=== PATIENT | male | born 1960 | race Caucasian/White ===

== ENCOUNTER 2023-11-24 12:18 | Outpatient (OUT) | payer BC, SELFPAY ==
[2023-11-24 13:09] LABS: Basophils Percent Auto 0.5 % (0.2-2.0); Eosinophils Absolute Auto 0.1 10^3/uL (0.0-0.7); Eosinophils Percent Auto 1.1 % (0.9-7.0); Hemoglobin 11.2 g/dL (14.0-18.0); Immature Granulocytes Abs Auto 0.03 10^3/uL (0.00-0.03); Immature Granulocytes Pct Auto 0.5 % (0.0-0.5); Lymphocytes Absolute Auto 1.8 10^3/uL (1.2-3.8); Lymphocytes Percent Auto 29.4 % (20.5-60.0); Mean Corpuscular HGB Conc 30.3 g/dL (29.9-35.2); Mean Corpuscular Hemoglobin 26.4 pg (25.9-34.0); Mean Corpuscular Volume 87.3 fL (80.0-94.0); Mean Platelet Volume 9.2 fL (9.5-13.5); Monocytes Absolute Auto 0.6 10^3/uL (0.3-0.8); Monocytes Percent Auto 10.1 % (1.7-12.0); Neutrophils Absolute Auto 3.6 10^3/uL (1.4-6.5); Neutrophils Percent Auto 58.4 % (43.0-75.0); Platelet Count 400 10^3/uL (150-450); Red Blood Count 4.24 10^6/uL (4.70-6.10); Red Cell Distribution Width 14.3 % (11.0-15.0); White Blood Count 6.2 10^3/uL (4.0-11.0)
[2023-11-24 13:34] LABS: Alanine Aminotransferase 19 U/L (16-63); Albumin Globulin Ratio 0.7; Albumin Level 3.1 g/dL (3.4-5.0); Alkaline Phosphatase 161 U/L (46-116); Anion Gap 16.3; Aspartate Amino Transferase 11 U/L (15-37); BUN Creatinine Ratio 13.8; Bilirubin Total 0.5 mg/dL (0.2-1.0); Calcium 9.7 mg/dL (8.5-10.1); Carbon Dioxide 25.8 mmol/L (21.0-32.0); Chloride 100 mmol/L (98-107); Chol HDL Ratio 2.8; Cholesterol 134 mg/dL (<=200); Estimated GFR (African America >60 (>=60); Estimated GFR (Non-African Ame >60 (>=60); Free T3 2.01 pg/mL (2.18-3.98); Globulin 4.5 g/dL; Glucose 91 mg/dL (74-106); HDL Cholesterol 48 mg/dL (40-60); LDL Cholesterol Calculated 75.8 mg/dL; Potassium 4.1 mmol/L (3.5-5.1); Sodium 138 mmol/L (136-145); Total Protein 7.6 g/dL (6.4-8.2); Triglycerides 51 mg/dL (<=150); VLDL CHOLESTEROL 10.2 mg/dL
[2023-11-24 14:49] LABS: Prostate Specific Antigen Scrn 3.76 ng/mL (<=4.00)
[2023-11-24 15:01] LABS: Thyroid Stimulating Hormone 0.356 uIU/mL (0.358-3.740)
[2023-11-24 15:04] LABS: Estimated Average Glucose 126 mg/dL
== END 2023-11-24 12:19 | disposition home or self-care (01) ==
LOC: LAB 12:24
PROVIDERS: PCP Family Medicine; Visit Provider Family Medicine
DX: Z00.00 Encounter for general adult medical examination without abnormal findings (principal)
CPT/HCPCS: 36415; 80053; 80061; 83036; 84436; 84443; 84481; 85025; G0103

== ENCOUNTER 2023-12-03 19:26 | Outpatient (REF) | payer BC, SELFPAY ==
--- OUTSIDE RECORDS SUMMARY | 2023-12-03 19:31 | XMS_ITS | CCD ---
Author Name Unknown Address [address] [place] [address] Organization [facility] Care Team Providers [facility] Concierge Name Role Phone Austyn EATON Attending Unavailable Austyn EATON Attending Unavailable MARTYMaricruz BOND Attending Unavailable Maricruz FERGUSON Admitting Unavailable HOY ., DR HILL Admitting Unavailable HOY ., DR HILL Primary Care Unavailable HOY ., DR HILL Attending Unavailable HOY ., DR HILL Primary Care Unavailable HOY ., DR HILL Consulting Unavailable HOY ., DR HILL Attending Unavailable HOY ., DR HILL Admitting Unavailable HOY ., DR HILL Admitting Unavailable HOY ., DR HILL Primary Care Unavailable HOY ., DR HILL Consulting Unavailable HOY ., DR HILL Attending Unavailable Allergies Allergy Classification Reported Allergen(s) Allergy Type Date of Onset Reaction(s) Facility (2 sources) Cephalexin Drug Allergy 11-18-[address] [facility] Repository Problems Problem Classification Problem Date Documented Da te Episodic/Chronic Other screening for suspected conditions (not mental disorders or infectious disease) (2 sources) Encounter for screening for malignant neoplasm of prostate; Translations: [Elevated prostate specific antigen [PSA]] Onset: 02-20-2023 Episodic Results Test Name Value Interpretation Reference Range Facil ity PSA, FREE AND TOTAL RATIOon 02-19-2023 % Free PSA 22.3 % Normal [facility] Comment on above: Result Comment: The table below lists the probability of prostate cancer for men with non-suspicious KYLAH results and total PSA between 4 and 10 ng/mL, by patient age (Kelsey et al, ERIKA 1998, 279:1542). % Free PSA 50-64 yr 65-75 yr 0.00-10.00% 56% 55% 10.01-15.00% 24% 35% 15.01-20.00% 17% 23% 20.01-25.00% 10% 20% >25.00% 5% 9% Please note: Kelsey et al did not make specific recommendations regarding the use of percent free PSA for any other population of men. Performed By: #### P SAFREE #### [facility] [address] [place] [address] Dr. Rafael Barragan Prostate specific Ag [Mass/Vol] 3.5 ng/mL Normal 0.0-4.0 [facility] Comment on above: Result Comment: Bell ESPINO methodology. . According to the [employer], Serum PSA should decrease and remain at undetectable levels after radical prostatectomy. The AUA defines biochemical recurrence as an initial PSA value 0.2 ng/mL or greater followed by a subsequent confirmatory PSA value 0.2 ng/mL or greater. Values obtained with different assay methods or kits cannot be used interchangeably. Results cannot be interpreted as absolute evidence of the presence or absence of malignant disease. Performed By: #### P SAFREE #### [facility] [address] [place] [address] Dr. Rafael Barragan PSA, Free 0.78 ng/mL Normal N/A [facility] Comment on above: Result Comment: Bell ESPINO methodology. Performed By: #### P SAFREE #### [facility] [address] [place] [address] Dr. Rafael Barragan CBC AUTO DIFFon 02-17-2023 BASO # 0.0 103/ul Normal 0.0-0.1 [facility] Comment on above: Performed By: #### C BC #### [facility] [address] [place] [address] Dr. Rafael Barragan Basophils/100 WBC (Bld) 0.7 % Normal 0.2-2.0 [facility] Comment on above: Performed By: #### C BC #### [facility] [address] [place] [address] Dr. Rafael Barragan EO # 0.2 103/ul Normal 0.0-0.7 [facility] Comment on above: Performed By: #### C BC #### [facility] [address] [place] [address] Dr. Rafael Barragan Eosinophils/100 WBC (Bld) 2.6 % Normal 0.9-7.0 [facility] Comment on above: Performed By: #### C BC #### [facility] [address] [place] [address] Dr. Rafael Barragan Erythrocyte distribution width (RBC) [Ratio] 14.3 % Normal 11.0-15.0 [facility] Comment on above: Performed By: #### C BC #### [facility] [address] [place] [address] Dr. Rafael Barragan Hematocrit (Bld) [Volume fraction] 39.7 % Critically low 42.0-54.0 [facility] Comment on above: Performed By: #### C BC #### [facility] [address] [place] [address] Dr. Rafael Barragan Hemoglobin (Bld) [Mass/Vol] 12.8 g/dL Critically low 14.0-18.0 [facility] Comment on above: Performed By: #### C BC #### [facility] [address] [place] [address] Dr. Rafael Barragan IG # 0.02 10e3/ul Normal 0.00-0.03 [facility] Comment on above: Performed By: #### C BC #### [facility] [address] [place] [address] Dr. Rafael Barragan IG % 0.3 % Normal 0.0-0.[address] [facility] Comment on above: Performed By: #### C BC #### [facility] [address] [place] [address] Dr. Rafael Barragan LYMPH # 1.7 103/ul Normal 1.2-3.[address] [facility] Comment on above: Performed By: #### C BC #### [facility] [address] [place] [address] Dr. Rafael Barragan Lymphocytes/100 WBC (Bld) 27.6 % Normal 20.5-60.0 [facility] Comment on above: Performed By: #### C BC #### [facility] [address] [place] [address] Dr. Rafael Barragan MANUAL DIFF REQ NO Normal [facility] Comment on above: Performed By: #### C BC #### [facility] [address] [address] [address] Rafael Barragan MCH (RBC) [Entitic mass] 28.5 pg Normal 25.9-34.0 [facility] Comment on above: Performed By: #### C BC #### [facility] [address] [place] [address] Dr. Rafael Barragan MCHC (RBC) [Mass/Vol] 32.2 g/dL Normal 29.9-35.2 [facility] Comment on above: Performed By: #### C BC #### [facility] [address] [place] [address] Dr. Rafael Barragan MCV (RBC) [Entitic vol] 88.4 fL Normal 80.0-94.0 [facility] Comment on above: Performed By: #### C BC #### [facility] [address] [place] [address] Dr. Rafael Barragan MONO # 0.5 103/ul Normal 0.3-0.8 [facility] Comment on above: Performed By: #### C BC #### [facility] [address] [place] [address] Dr. Rafael Barragan Monocytes/100 WBC (Bld) 8.6 % Normal 1.7-12.0 [facility] Comment on above: Performed By: #### C BC #### [facility] [address] [place] [address] Dr. Rafael Barragan NEUT # 3.6 103/ul Normal 1.4-6.5 [facility] Comment on above: Performed By: #### C BC #### [facility] [address] [place] [address] Dr. Rafael Barragan Neutrophils/100 WBC (Bld) 60.2 % Normal 43.0-75.0 [facility] Comment on above: Performed By: #### C BC #### [facility] [address] [place] [address] Dr. Rafael Barragan Platelet mean volume (Bld) [Entitic vol] 9.3 fL Critically low 9.5-13.5 [facility] Comment on above: Performed By: #### C BC #### [facility] [address] [address] [address] Rafael Barragan PLT 351 103/ul Normal 150-450 [facility] Comment on above: Performed By: #### C BC #### [facility] [address] [address] [address] Rafael Barragan RBC 4.49 106/ul Critically low 4.70-6.10 [facility] Comment on above: Performed By: #### C BC #### [facility] [address] [address] [address] Rafael Barragan WBC 6.0 103/ul Normal 4.0-11.0 [facility] Comment on above: Performed By: #### C BC #### [facility] [address] [place] [address] Dr. Rafael Barragan FREE THYROXINE INDEX T7on FTI 2.10 Normal 1.30-4.50 [facility] Comment on above: Performed By: #### T SH, LIPID, T7, CMP #### [facility] [address] [place] [address] Dr. Rafael Barragan T3U 35.0 % Normal 33.0-40.0 [facility] Comment on above: Performed By: #### T SH, LIPID, T7, CMP #### [facility] [address] [place] [address] Dr. Rafael Barragan T4 [Mass/Vol] 6.00 ug/dL Normal 4.50-12.10 [facility] Comment on above: Performed By: #### T SH, LIPID, T7, CMP #### [facility] [address] [place] [address] Dr. Rafael Barragan GLYCOHEMOGLOBIN A1Con 2022 ADA RECOMMENDATION SEE BELOW Normal [facility] Comment on above: Result Comment: ADA RECOMMENDED LIMIT 4.0 - 6.0 ADA THERAPEUTIC TARGET < 7.0 ACTION SUGGESTED > 7.0 Performed By: #### A 1C #### [facility] [address] [address] [address] Rafael Barragan Glucose [Mass/Vol] 114 mg/dL Normal [facility] Comment on above: Performed By: #### A 1C #### [facility] [address] [address] [address] Rafael Barragan HbA1c (Bld) [Mass fraction] 5.6 % Normal 4.5-6.2 [facility] Comment on above: Performed By: #### A 1C #### [facility] [address] [place] [address] Dr. Rafael Barragan LIPID PROFILEon 02-17-2023 CHOL-HDL RATIO NORM SEE BELOW Normal [facility] Comment on above: Result Comment: 3.3 - 4.4 LOW RISK 4.4 - 7.1 AVERAGE RISK 7.1 - 11.0 MODERATE RISK >11.0 HIGH RISK Performed By: #### T SH, LIPID, T7, CMP #### [facility] [address] [place] [address] Dr. Rafael Barragan Cholesterol [Mass/Vol] 152 mg/dL Normal <=200 [facility] Comment on above: Performed By: #### T SH, LIPID, T7, CMP #### [facility] [address] [place] [address] Dr. Rafael Barragan Cholesterol in HDL [Mass/Vol] 65 mg/dL Critically high 40-60 [facility] Comment on above: Performed By: #### T SH, LIPID, T7, CMP #### [facility] [address] [place] [address] Dr. Rafael Barragan Cholesterol in LDL [Mass/Vol] 75.8 mg/dL Normal [facility] Comment on above: Performed By: #### T SH, LIPID, T7, CMP #### [facility] [address] [place] [address] Dr. Rafael Barragan Cholesterol.total/Cho lesterol in HDL [Mass ratio] 2.3 {ratio} Normal [facility] Comment on above: Performed By: #### T SH, LIPID, T7, CMP #### [facility] [address] [place] [address] Dr. Rafael Barragan HDL NORMAL > or = 60 mg/dl - LOW CARDIOVASCULAR RISK <40 mg/dl - HIGH CARDIOVASCULAR RISK Normal [facility] Comment on above: Performed By: #### T SH, LIPID, T7, CMP #### [facility] [address] [address] [address] Rafael Barragan LDL CALC NORMAL SEE BELOW Normal [facility] Comment on above: Result Comment: <100 mg/dl OPTIMAL 100 - 129 mg/dl NEAR OR ABOVE OPTIMAL 130 - 159 mg/dl BORDERLINE HIGH 160 - 189 mg/dl HIGH >190 mg/dl VERY HIGH Performed By: #### T SH, LIPID, T7, CMP #### [facility] [address] [address] [address] Rafael Barragan Triglyceride [Mass/Vol] 56 mg/dL Normal <=150 [facility] Comment on above: Performed By: #### T SH, LIPID, T7, CMP #### [facility] [address] [address] [address] Rafael Barragan VLDL CALC 11.2 mg/dL Normal [facility] Comment on above: Performed By: #### T SH, LIPID, T7, CMP #### [facility] [address] [address] [address] Rafael Barragan OCC BLD IMMUNO SCREENon 01-28 OCCULT BLOOD Negative Normal NEGATIVE [facility] Comment on above: Performed By: #### O BSCRN #### [facility] [address] [address] [address] Rafael Barragan PROF 14(COMP METB)on 023 Albumin [Mass/Vol] 3.6 g/dL Normal 3.4-5.0 [facility] Comment on above: Performed By: #### T SH, LIPID, T7, CMP #### [facility] [address] [address] [address] Rafael Barragan Albumin/Globulin [Mass ratio] 0.9 {ratio} Normal [facility] Comment on above: Performed By: #### T SH, LIPID, T7, CMP #### [facility] [address] [address] [address] Rafael Barragan ALP [Catalytic activity/Vol] 135 U/L Critically high 46-116 [facility] Comment on above: Performed By: #### T SH, LIPID, T7, CMP #### [facility] [address] [place] [address] Dr. Rafael Barragan ALT [Catalytic activity/Vol] 22 U/L Normal 16-63 [facility] Comment on above: Performed By: #### T SH, LIPID, T7, CMP #### [facility] [address] [address] [address] Rafael Barragan Anion gap [Moles/Vol] 11.4 mmol/L Normal [facility] Comment on above: Performed By: #### T SH, LIPID, T7, CMP #### [facility] [address] [place] [address] Dr. Rafael Barragan AST [Catalytic activity/Vol] 13 U/L Critically low 15-37 [facility] Comment on above: Performed By: #### T SH, LIPID, T7, CMP #### [facility] [address] [place] [address] Dr. Rafael Barragan Bilirubin [Mass/Vol] 0.4 mg/dL Normal 0.2-1.0 [facility] Comment on above: Performed By: #### T SH, LIPID, T7, CMP #### [facility] [address] [place] [address] Dr. Rafael Barragan Calcium [Mass/Vol] 9.7 mg/dL Normal 8.5-10.1 [facility] Comment on above: Performed By: #### T SH, LIPID, T7, CMP #### [facility] [address] [place] [address] Dr. Rafael Barragan Chloride [Moles/Vol] 101 mmol/L Normal 98-107 [facility] Comment on above: Performed By: #### T SH, LIPID, T7, CMP #### [facility] [address] [place] [address] Dr. Rafael Barragan CO2 [Moles/Vol] 30.9 mmol/L Normal 21.0-32.0 [facility] Comment on above: Performed By: #### T SH, LIPID, T7, CMP #### [facility] [address] [address] [address] Rafael Barragan Creatinine [Mass/Vol] 0.82 mg/dL Normal 0.70-1.[address] [facility] Comment on above: Performed By: #### T SH, LIPID, T7, CMP #### [facility] [address] [address] [address] Rafael Barragan EGFR-AF STATELESS >60 Normal >=60 [facility] Comment on above: Performed By: #### T SH, LIPID, T7, CMP #### [facility] [address] [address] [address] Rafael Barragan EGFR-NON AF STATELESS >60 Normal >=60 [facility] Comment on above: Performed By: #### T SH, LIPID, T7, CMP #### [facility] [address] [place] [address] Dr. Rafael Barragan Globulin (S) [Mass/Vol] 4.1 g/dL Normal [facility] Comment on above: Performed By: #### T SH, LIPID, T7, CMP #### [facility] [address] [address] [address] Rafael Barragan Glucose [Mass/Vol] 96 mg/dL Normal 74-106 [facility] Comment on above: Performed By: #### T SH, LIPID, T7, CMP #### [facility] [address] [address] [address] Rafael Barragan Potassium [Moles/Vol] 4.3 mmol/L Normal 3.5-5.1 [facility] Comment on above: Performed By: #### T SH, LIPID, T7, CMP #### [facility] [address] [address] [address] Rafael Barragan Protein [Mass/Vol] 7.7 g/dL Normal 6.4-8.2 [facility] Comment on above: Performed By: #### T SH, LIPID, T7, CMP #### [facility] [address] [address] [address] Rafael Barragan Sodium [Moles/Vol] 139 mmol/L Normal 136-145 [facility] Comment on above: Performed By: #### T SH, LIPID, T7, CMP #### [facility] [address] [address] [address] Rafael Barragan Urea nitrogen [Mass/Vol] 17.0 mg/dL Normal 7.0-18.0 [facility] Comment on above: Performed By: #### T SH, LIPID, T7, CMP #### [facility] [address] [address] [address] Rafael Barragan Urea nitrogen/Creatinine [Mass ratio] 20.7 mg/mg Normal [facility] Comment on above: Performed By: #### T SH, LIPID, T7, CMP #### [facility] [address] [address] [address] Rafael Barragan TSHon 02-17-2023 TSH 0.680 uIU/mL Normal 0.358-3.740 [facility] Comment on above: Performed By: #### T SH, LIPID, T7, CMP #### [facility] [address] [place] [address] Dr. Rafael Barragan [place] 01-27-2023 Consent [id number] 9#1.00CD:127 Normal [facility] Registrationon 01-27-2023 Registration [id number] 8#1.00CD:127 Normal [facility] In office Testingon 12-18-19 23 In office Testing [id number] #1.00CD:127 Normal [facility] [place] 10-09-2022 Consent [id number] 4#1.00CD:127 Normal [facility] Registrationon 10-09-2022 Registration [id number] 2#1.00CD:127 Normal [facility] [place] 09-29-2022 Consent [id number] #1.00CD:127 Normal [facility] Registrationon 09-29-2022 Registration [id number] #1.00CD:127 Normal [facility] Encounters Encounter Date Encounter Type Care Provider Facility Start: 02-21-2023 Encounter for genera l adult medical examination without abnormal findings DR LIZ LAU . [facility] Start: 02-19-2023 End: 02-19-[address] LIZ LAU . Facility[facility] Start: 02-19-2023 End: 02-19-2023 Encounter for general adult medical examination without abnormal findings DR LIZ LAU . Facility:[facility] Start: 02-17-2023 End: 02-18-[address] LIZ LAU . Facility:[facility] Start: 01-27-2023 End: 01-28-2023 ambulatory [facility] Start: 10-09-2022 End: 10-10-2022 ambulatory [facility] Start: 09-29-2022 End: 09-30-2022 ambulatory Maricruz FERGUSON [facility] Start: 09-22-[address] LIZ LAU . Facili ty:[facility] Procedures Date Procedure Procedure Detail Performing Clinician Start: 02-17-[address] AMINATA LAU . Comment on above: Performed By: #### P [facility] #### [facility] [address] [place] [address] Dr. Rafael Barragan Payers Date Payer Category Payer Self-pay 1960 Unknown [id number] 2.16.8 [id number] 1960 Unknown [id number] 2.16.8 [id number] 1960 Unknown [id number] 2.16.8 [id number] 1960 Unknown [id number] 2.16.84 [id number] 1960 Unknown [id number] 2.16.84 [id number] 1960 Unknown [id number] 2.16.84 [id number] 1959 Self-pay [id number] 1959 Unknown [id number] Summary Purpose Family History No Family History Records FoundNo Family History Records Found Advance Directives No Advanced Directives Records FoundNo Advanced Directives Records Found Additional Source Comments (unrecognized sect ion and content) No Status Records FoundNo Status Records Found INFORMATION SOURCE (unrecogn ized section and content) DATE CREATED AUTHOR 01/29/2023 [facility] DATE CREATED AUTHOR AUTHOR'S OMAR ATCRISTY 02/22/2023 [facility] FOR RECORDS PERTAINING TO PATIENTS WHO ARE OR HAVE BEEN ENROLLED IN A CHEMICAL DEPENDENCY/SUBSTANCEABUSE PROGRAM, SOME INFORMATION MAY BE OMITTED. This clinical summary was aggregated from multiple sources. Caution should be exercised in using it in the provision of clinical care. This summary normalizes information from multiple sources, and as a consequence, information in this document may materially change the coding, format and clinical context of patient data. In addition, data may be omitted in some cases. CLINICAL DECISIONS SHOULD BE BASED ON THE PRIMARY CLINICAL RECORDS. [employer] provides no warranty or guarantee of the accuracy or completeness of information in this document.
== END 2023-12-03 19:27 | disposition home or self-care (01) ==
LOC: LAB 19:26
PROVIDERS: PCP Family Medicine; Visit Provider Family Medicine
DX: Z00.00 Encounter for general adult medical examination without abnormal findings (principal)
CPT/HCPCS: G0328

== ENCOUNTER 2024-04-04 17:59 | Outpatient (OUT) | payer BC, SELFPAY ==
--- OUTSIDE RECORDS SUMMARY | 2024-04-04 18:09 | XMS_ITS | CCD ---
Author Organization [facility] Care Team Providers Care Senior Hydrogeologist Name Role Phone Austyn EATON Attending Unavailable Austyn EATON Attending Unavailable Maricruz FERGUSON Attending Unavailable Maricruz FERGUSON Admitting Unavailable HOY [...] (2 sources) Cephalexin Drug Allergy 11-18-2014 [facility] Repository Problems Problem Classification Problem Date Documented Da te Episodic/Chronic Other screening for suspected conditions (not mental disorders or infectious disease) (2 sources) Encounter for screening for malignant neoplasm of prostate; Translations: [Elevated prostate specific antigen [PSA]] Onset: 02-20-2023 Episodic Results Test Name Value Interpretation Reference Range Facil ity PSA, FREE AND TOTAL RATIOon 02-19-2023 % Free PSA 22.3 % Normal [facility] Comment on above: Result Comment: The table [...] men. Performed By: #### P SAFREE #### [facility] [address] [place] [address] Dr. Rafael Barragan Prostate specific Ag [Mass/Vol] 3.5 ng/mL Normal 0.0-4.0 [facility] Comment on above: Result Comment: [employer] ECLIA methodology. . According to the [employer], Serum PSA should decrease and [...] disease. Performed By: #### P SAFREE #### [facility] [address] [place] [address] Dr. Rafael Barragan PSA, Free 0.78 ng/mL Normal N/A [facility] Comment on above: Result Comment: [employer] ECLIA methodology. Performed By: #### P SAFREE #### [facility] [address] [place] [address] Dr. Rafael Barragan CBC AUTO DIFFon 02-17-2023 BASO # 0.0 103/ul Normal 0.0-0.1 [facility] Comment on above: Performed By: #### C BC #### [facility] [address] [place] [address] Dr. Rafael Barragan Basophils/100 WBC (Bld) 0.7 % Normal 0.2-2.0 [facility] Comment on above: Performed By: #### C BC #### [facility] [address] [place] [address] Dr. Rafael Barragan EO # 0.2 103/ul Normal 0.0-0.7 [facility] Comment on above: Performed By: #### C BC #### [facility] [address] [place] [address] Dr. Rafael Barragan Eosinophils/100 WBC (Bld) 2.6 % Normal 0.9-7.0 [facility] Comment on above: Performed By: #### C BC #### [facility] [address] [place] [address] Dr. Rafael Barragan Erythrocyte distribution width (RBC) [Ratio] 14.3 % Normal 11.0-15.0 [facility] Comment on above: Performed By: #### C BC #### [facility] [address] [place] [address] Dr. Rafael Barragan Hematocrit (Bld) [Volume fraction] 39.7 % Critically low 42.0-54.0 [facility] Comment on above: Performed By: #### C BC #### [facility] [address] [place] [address] Dr. Rafael Barragan Hemoglobin (Bld) [Mass/Vol] 12.8 g/dL Critically low 14.0-18.0 [facility] Comment on above: Performed By: #### C BC #### [facility] [address] [place] [address] Dr. Rafael Barragan IG # 0.02 10e3/ul Normal 0.00-0.03 [facility] Comment on above: Performed By: #### C BC #### [facility] [address] [place] [address] Dr. Rafael Barragan IG % 0.3 % Normal 0.0-0.5 [facility] Comment on above: Performed By: #### C BC #### [facility] [address] [place] [address] Dr. Rafael Barragan LYMPH # 1.7 103/ul Normal 1.2-3.8 [facility] Comment on above: Performed By: #### C BC #### [facility] [address] [place] [address] Dr. Rafael Barragan Lymphocytes/100 WBC (Bld) 27.6 % Normal 20.5-60.0 [facility] Comment on above: Performed By: #### C BC #### [facility] [address] [place] [address] Dr. Rafael Barragan MANUAL DIFF REQ NO Normal [facility] Comment on above: Performed By: #### C BC #### [facility] [address] [place] [address] Dr. Rafael Barragan MCH (RBC) [Entitic mass] 28.5 pg Normal 25.9-34.0 [facility] Comment on above: Performed By: #### C BC #### [facility] [address] [place] [address] Dr. Rafael Barragan MCHC (RBC) [Mass/Vol] 32.2 g/dL Normal 29.9-35.2 [facility] Comment on above: Performed By: #### C BC #### [facility] [address] [place] [address] Dr. Rafael Barragan MCV (RBC) [Entitic vol] 88.4 fL Normal 80.0-94.0 [facility] Comment on above: Performed By: #### C BC #### [facility] [address] [place] [address] Dr. Rafael Barragan MONO # 0.5 103/ul Normal 0.3-0.8 [facility] Comment on above: Performed By: #### C BC #### [facility] [address] [place] [address] Dr. Rafael Barragan Monocytes/100 WBC (Bld) 8.6 % Normal 1.7-12.0 [facility] Comment on above: Performed By: #### C BC #### [facility] [address] [place] [address] Dr. Rafael Barragan NEUT # 3.6 103/ul Normal 1.4-6.5 [facility] Comment on above: Performed By: #### C BC #### [facility] [address] [place] [address] Dr. Rafael Barragan Neutrophils/100 WBC (Bld) 60.2 % Normal 43.0-75.0 [facility] Comment on above: Performed By: #### C BC #### [facility] [address] [place] [address] Dr. Rafael Barragan Platelet mean volume (Bld) [Entitic vol] 9.3 fL Critically low 9.5-13.5 [facility] Comment on above: Performed By: #### C BC #### [facility] [address] [address] [address] Rafael Barragan PLT 351 103/ul Normal 150-450 [facility] Comment on above: Performed By: #### C BC #### [facility] [address] [address] [address] Rafael Barragan RBC 4.49 106/ul Critically low 4.70-6.10 [facility] Comment on above: Performed By: #### C BC #### [facility] [address] [address] [address] Rafael Barragan WBC 6.0 103/ul Normal 4.0-11.0 [facility] Comment on above: Performed By: #### C BC #### [facility] [address] [place] [address] Dr. Rafael Barragan FREE THYROXINE INDEX T7on FTI 2.10 Normal 1.30-4.50 [facility] Comment on above: Performed By: #### T SH, LIPID, T7, CMP #### [facility] [address] [address] [address] Rafael Barragan T3U 35.0 % Normal 33.0-40.0 [facility] Comment on above: Performed By: #### T SH, LIPID, T7, CMP #### [facility] [address] [address] [address] Rafael Barragan T4 [Mass/Vol] 6.00 ug/dL Normal 4.50-12.10 [facility] Comment on above: Performed By: #### T SH, LIPID, T7, CMP #### [facility] [address] [place] [address] Dr. Rafael Barragan GLYCOHEMOGLOBIN A1Con 2022 ADA RECOMMENDATION SEE BELOW Normal [facility] Comment on above: Result Comment: ADA RECOMMENDED LIMIT 4.0 - 6.0 ADA THERAPEUTIC TARGET < 7.0 ACTION SUGGESTED > 7.0 Performed By: #### A 1C #### [facility] [address] [address] [address] Rafael Barragan Glucose [Mass/Vol] 114 mg/dL Normal [facility] Comment on above: Performed By: #### A 1C #### [facility] [address] [address] [address] Rafael Barragan HbA1c (Bld) [Mass fraction] 5.6 % Normal 4.5-6.2 [facility] Comment on above: Performed By: #### A 1C #### [facility] [address] [address] [address] Rafael Barragan LIPID PROFILEon 02-17-2023 CHOL-HDL RATIO NORM SEE BELOW Normal [facility] Comment on above: Result Comment: 3.3 - 4.4 LOW RISK 4.4 - 7.1 AVERAGE RISK 7.1 - 11.0 MODERATE RISK >11.0 HIGH RISK Performed By: #### T SH, LIPID, T7, CMP #### [facility] [address] [address] [address] Rafael Barragan Cholesterol [Mass/Vol] 152 mg/dL Normal <=200 [facility] Comment on above: Performed By: #### T SH, LIPID, T7, CMP #### [facility] [address] [address] [address] Rafael Barragan Cholesterol in HDL [Mass/Vol] 65 mg/dL Critically high 40-60 [facility] Comment on above: Performed By: #### T SH, LIPID, T7, CMP #### [facility] [address] [address] [address] Rafael Barragan Cholesterol in LDL [Mass/Vol] 75.8 mg/dL Normal [facility] Comment on above: Performed By: #### T SH, LIPID, T7, CMP #### [facility] [address] [address] [address] Rafael Barragan Cholesterol.total/Cho lesterol in HDL [Mass ratio] 2.3 {ratio} Normal [facility] Comment on above: Performed By: #### T SH, LIPID, T7, CMP #### [facility] [address] [address] [address] Rafael Barragan HDL NORMAL > or = 60 mg/dl - LOW CARDIOVASCULAR RISK <40 mg/dl - HIGH CARDIOVASCULAR RISK Normal [facility] Comment on above: Performed By: #### T SH, LIPID, T7, CMP #### [facility] [address] [address] [address] Rafael Barragan LDL CALC NORMAL SEE BELOW Normal [facility] Comment on above: Result Comment: <100 mg/dl OPTIMAL 100 - 129 mg/dl NEAR OR ABOVE OPTIMAL 130 - 159 mg/dl BORDERLINE HIGH 160 - 189 mg/dl HIGH >190 mg/dl VERY HIGH Performed By: #### T SH, LIPID, T7, CMP #### [facility] [address] [address] [address] Rafael Barragan Triglyceride [Mass/Vol] 56 mg/dL Normal <=150 [facility] Comment on above: Performed By: #### T SH, LIPID, T7, CMP #### [facility] [address] [address] [address] Rafael Barragan VLDL CALC 11.2 mg/dL Normal [facility] Comment on above: Performed By: #### T SH, LIPID, T7, CMP #### [facility] [address] [address] [address] Rafael Barragan OCC BLD IMMUNO SCREENon 01-28 OCCULT BLOOD Negative Normal NEGATIVE [facility] Comment on above: Performed By: #### O BSCRN #### [facility] [address] [address] [address] Rafael Barragan PROF 14(COMP METB)on 023 Albumin [Mass/Vol] 3.6 g/dL Normal 3.4-5.0 [facility] Comment on above: Performed By: #### T SH, LIPID, T7, CMP #### [facility] [address] [address] [address] Rafael Barragan Albumin/Globulin [Mass ratio] 0.9 {ratio} Normal [facility] Comment on above: Performed By: #### T SH, LIPID, T7, CMP #### [facility] [address] [address] [address] Rafael Barragan ALP [Catalytic activity/Vol] 135 U/L Critically high 46-116 [facility] Comment on above: Performed By: #### T SH, LIPID, T7, CMP #### [facility] [address] [address] [address] Rafael Barragan ALT [Catalytic activity/Vol] 22 U/L Normal 16-63 [facility] Comment on above: Performed By: #### T SH, LIPID, T7, CMP #### [facility] [address] [place] [address] Dr. Rafael Barragan Anion gap [Moles/Vol] 11.4 mmol/L Normal [facility] Comment on above: Performed By: #### T SH, LIPID, T7, CMP #### [facility] [address] [place] [address] Dr. Rafael Barragan AST [Catalytic activity/Vol] 13 U/L Critically low 15-37 [facility] Comment on above: Performed By: #### T SH, LIPID, T7, CMP #### [facility] [address] [place] [address] Dr. Rafael Barragan Bilirubin [Mass/Vol] 0.4 mg/dL Normal 0.2-1.0 [facility] Comment on above: Performed By: #### T SH, LIPID, T7, CMP #### [facility] [address] [place] [address] Dr. Rafael Barragan Calcium [Mass/Vol] 9.7 mg/dL Normal 8.5-10.1 [facility] Comment on above: Performed By: #### T SH, LIPID, T7, CMP #### [facility] [address] [address] [address] Rafael Barragan Chloride [Moles/Vol] 101 mmol/L Normal 98-107 [facility] Comment on above: Performed By: #### T SH, LIPID, T7, CMP #### [facility] [address] [place] [address] Dr. Rafael Barragan CO2 [Moles/Vol] 30.9 mmol/L Normal 21.0-32.0 [facility] Comment on above: Performed By: #### T SH, LIPID, T7, CMP #### [facility] [address] [place] [address] Dr. Rafael Barragan Creatinine [Mass/Vol] 0.82 mg/dL Normal 0.70-1.30 [facility] Comment on above: Performed By: #### T SH, LIPID, T7, CMP #### [facility] [address] [address] [address] Rafael Barragan EGFR-AF [place] >60 Normal >=60 [facility] Comment on above: Performed By: #### T SH, LIPID, T7, CMP #### [facility] [address] [address] [address] Rafael Barragan EGFR-NON AF [place] >60 Normal >=60 [facility] Comment on above: Performed By: #### T SH, LIPID, T7, CMP #### [facility] [address] [place] [address] Dr. Rafael Barragan Globulin (S) [Mass/Vol] 4.1 g/dL Normal [facility] Comment on above: Performed By: #### T SH, LIPID, T7, CMP #### [facility] [address] [place] [address] Dr. Rafael Barragan Glucose [Mass/Vol] 96 mg/dL Normal 74-106 [facility] Comment on above: Performed By: #### T SH, LIPID, T7, CMP #### [facility] [address] [place] [address] Dr. Rafael Barragan Potassium [Moles/Vol] 4.3 mmol/L Normal 3.5-5.1 [facility] Comment on above: Performed By: #### T SH, LIPID, T7, CMP #### [facility] [address] [place] [address] Dr. Rafael Barragan Protein [Mass/Vol] 7.7 g/dL Normal 6.4-8.2 [facility] Comment on above: Performed By: #### T SH, LIPID, T7, CMP #### [facility] [address] [place] [address] Dr. Rafael Barragan Sodium [Moles/Vol] 139 mmol/L Normal 136-145 [facility] Comment on above: Performed By: #### T SH, LIPID, T7, CMP #### [facility] [address] [place], [place] [address] Dr. Rafael Barragan Urea nitrogen [Mass/Vol] 17.0 mg/dL Normal 7.0-18.0 [facility] Comment on above: Performed By: #### T SH, LIPID, T7, CMP #### [facility] [address] [place], [place] [address] Dr. Rafael Barragan Urea nitrogen/Creatinine [Mass ratio] 20.7 mg/mg Normal [facility] Comment on above: Performed By: #### T SH, LIPID, T7, CMP #### [facility] [address] [place], [place] [address] Dr. Rafael Barragan TSHon 02-17-2023 TSH 0.680 uIU/mL Normal 0.358-3.740 [facility] Comment on above: Performed By: #### T SH, LIPID, T7, CMP #### [facility] [address] [address] [address] Rafael Barragan [place] 01-27-2023 Consent [id number] 9#1.00CD:127 Normal [facility] Registrationon 01-27-2023 Registration [id number] 8#1.00CD:127 Normal [facility] In office Testingon 12-18-19 23 In office Testing [id number] #1.00CD:127 Normal [facility] [place] 10-09-2022 Consent [id number] 4#1.00CD:127 Normal [facility] Registrationon 10-09-2022 Registration [id number] 2#1.00CD:127 Normal [facility] [place] 09-29-2022 Consent [id number] #1.00CD:127 Normal [facility] Registrationon 09-29-2022 Registration [id number] #1.00CD:127 Normal [facility] Encounters Encounter Date Encounter Type Care Provider Facility Start: 02-21-2023 Encounter for genera l adult medical examination without abnormal findings DR LIZ LAU . [facility] Start: 02-19-2023 End: 02-19-[address] LIZ LAU . Facility[facility] Start: 02-19-2023 End: 02-19-2023 Encounter for general adult medical examination without abnormal findings DR LIZ LAU . Facility[facility] Start: 02-17-2023 End: 02-18-[address] LIZ LAU . Facility[facility] Start: 01-27-2023 End: 01-28-2023 ambulatory [facility] Start: 10-09-2022 End: 10-10-2022 ambulatory [facility] Start: 09-29-2022 End: 09-30-2022 ambulatory Maricruz Linnea [place] [facility] Start: 09-22-[address] LIZ LAU . Facili ty[facility] Procedures Date Procedure Procedure Detail Performing Clinician Start: 02-17-[address] AMINATA LAU . Comment on above: Performed By: #### P [facility] #### [facility] [address] [place] [address] Dr. Rafael Barragan Payers Date Payer Category Payer Self-pay 1960 Unknown [id number] [id number] [id number] 1960 Unknown [id number] 2.16.8 [id number] 1960 Unknown [id number] 2.16.8 [id number] 1960 Unknown [id number] 2.16.84 [id number] 1960 Unknown [id number] 2.16.84 [id number] 1960 Unknown [id number] 2.16.84 [id number] 1959 Self-pay [id number] 1959 Unknown [id number] Summary Purpose Family History No Family History Records FoundNo Family History Records Found Advance Directives No Advanced Directives Records FoundNo Advanced Directives Records Found Additional Source Comments (unrecognized sect ion and content) No Status Records FoundNo Status Records Found INFORMATION SOURCE (unrecogn ized section and content) DATE CREATED AUTHOR 01/29/2023 [facility] DATE CREATED AUTHOR AUTHOR'S OMAR ATCRISTY 02/22/2023 [facility] PERTAINING TO PATIENTS WHO ARE [...] BE BASED ON THE PRIMARY CLINICAL RECORDS. [facility]. provides no warranty or guarantee of the accuracy or completeness of information in this document.
--- NOTE | 2024-04-04 18:15 | XR_ITS ---
The [address] [address] Patient Name: DONNY DIEGO MRN: [id number] date: 1960 Sex: M Assigned Patient Location: [facility] Current Patient Location: Accession/Order Number: [id number] Exam Date: 04/04/2024 18:10 Report Date: 04/05/2024 07:50 At the request of: LIZ LAU Procedure: XR shoulder LT min 2V PROCEDURE: XR shoulder LT min 2V COMPARISON: None. HISTORY: Impingement of left shoulder, M25.812 FINDINGS: BONES:No acute fracture or dislocation. The acromioclavicular and glenohumeral joints are intact with mild osteoarthropathy. Moderate degenerative spondylosis of the spine SOFT TISSUES:Negative. No visible soft tissue swelling. EFFUSION:None visible. OTHER: Negative. XR/XR shoulder LT min 2V IMPRESSION: Mild degenerative changes with no significant subacromial spurring to suggest shoulder impingement Electronically authenticated by: ILNH DAILEY Date: 04/05/2024 07:50
== END 2024-04-04 18:00 | disposition home or self-care (01) ==
LOC: RAD 18:03
PROVIDERS: PCP Family Medicine; Visit Provider Family Medicine
DX: M25.812 Other specified joint disorders, left shoulder (principal)
CPT/HCPCS: 73030

== ENCOUNTER 2024-12-30 08:29 | Outpatient (OUT) | payer BC, SELFPAY ==
--- OUTSIDE RECORDS SUMMARY | 2024-12-30 08:32 | XMS_ITS | CCD ---
Author Organization [facility] Care Team Providers Care Publicity Expert Name Role Phone JUDI ., DR HILL Admitting Unavailable HOY ., [...] Unavailable HOY ., DR HILL Attending Unavailable MARTYMaricruz BOND Attending Unavailable Allergies Allergy Classification Reported Allergen(s) Allergy Type Date of Onset Reaction(s) Facility (2 sources) Cephalexin Drug Allergy 11-18-[address] [facility] Repository Problems Problem Classification Problem Date Documented Da te Episodic/Chronic Other screening for suspected conditions (not mental disorders or infectious disease) (2 sources) Encounter for screening for malignant neoplasm of prostate; Translations: [Elevated prostate specific antigen [PSA]] Onset: 02-20-2023 Episodic Results Test Name Value Interpretation Reference Range Facil ity PSA, FREE AND TOTAL RATIOon 02-19-2023 % Free PSA 22.3 % Normal [facility] Comment on above: Result Comment: The [...] men. Performed By: #### P SAFREE #### [facility] [address] [place] [address] Dr. Rafael Barragan Prostate specific Ag [Mass/Vol] 3.5 ng/mL Normal 0.0-4.0 [facility] Comment on above: Result Comment: Bell MARIEEIA methodology. . According to the [employer], Serum PSA should decrease and [...] disease. Performed By: #### P SAFREE #### [facility] [address] [place] [address] Dr. Rafael Barragan PSA, Free 0.78 ng/mL Normal N/A [facility] Comment on above: Result Comment: Bell cox ECLIA methodology. Performed By: #### P SAFREE #### [facility] [address] [place] [address] Dr. Rafael Barragan CBC AUTO DIFFon 02-17-2023 BASO # 0.0 103/ul Normal 0.0-0.1 [facility] Comment on above: Performed By: #### C BC #### [facility] [address] [place] [address] Dr. Rafael Barragan Basophils/100 WBC (Bld) 0.7 % Normal 0.2-2.0 [facility] Comment on above: Performed By: #### C BC #### [facility] [address] [place] [address] Dr. Rafael Barragan EO # 0.2 103/ul Normal 0.0-0.[address] [facility] Comment on above: Performed By: #### C BC #### [facility] [address] [place] [address] Dr. Rafael Barragan Eosinophils/100 WBC (Bld) 2.6 % Normal 0.9-7.0 [facility] Comment on above: Performed By: #### C BC #### [facility] [address] [place] [address] Dr. Rafael Barragan Erythrocyte distribution width (RBC) [Ratio] 14.3 % Normal 11.0-15.0 [facility] Comment on above: Performed By: #### C BC #### [facility] [address] [place] [address] Dr. Rafael Barragan Hematocrit (Bld) [Volume fraction] 39.7 % Critically low 42.0-54.0 [facility] Comment on above: Performed By: #### C BC #### [facility] [address] [place] [address] Dr. Rafael Barragan Hemoglobin (Bld) [Mass/Vol] 12.8 g/dL Critically low 14.0-18.0 [facility] Comment on above: Performed By: #### C BC #### [facility] [address] [place] [address] Dr. Rafael Barragan IG # 0.02 10e3/ul Normal 0.00-0.03 [facility] Comment on above: Performed By: #### C BC #### [facility] [address] [place] [address] Dr. Rafael Barragan IG % 0.3 % Normal 0.0-0.5 [facility] Comment on above: Performed By: #### C BC #### [facility] [address] [place] [address] Dr. Rafael Barragan LYMPH # 1.7 103/ul Normal 1.2-3.[address] [facility] Comment on above: Performed By: #### C BC #### [facility] [address] [place] [address] Dr. Rafael Barragan Lymphocytes/100 WBC (Bld) 27.6 % Normal 20.5-60.0 [facility] Comment on above: Performed By: #### C BC #### [facility] [address] [place] [address] Dr. Rafael Barragan MANUAL DIFF REQ NO Normal [facility] Comment on above: Performed By: #### C BC #### [facility] [address] [address] [address] Rafael Barragan MCH (RBC) [Entitic mass] 28.5 pg Normal 25.9-34.[address] [facility] Comment on above: Performed By: #### C BC #### [facility] [address] [place] [address] Dr. Rafael Barragan MCHC (RBC) [Mass/Vol] 32.2 g/dL Normal 29.9-35.[address] [facility] Comment on above: Performed By: #### C BC #### [facility] [address] [place] [address] Dr. Rafael Barragan MCV (RBC) [Entitic vol] 88.4 fL Normal 80.0-94.[address] [facility] Comment on above: Performed By: #### C BC #### [facility] [address] [place] [address] Dr. Rafael Barragan MONO # 0.5 103/ul Normal 0.3-0.[address] [facility] Comment on above: Performed By: #### C BC #### [facility] [address] [place] [address] Dr. Rafael Barragan Monocytes/100 WBC (Bld) 8.6 % Normal 1.7-12.[address] [facility] Comment on above: Performed By: #### C BC #### [facility] [address] [place] [address] Dr. Rafael Barragan NEUT # 3.6 103/ul Normal 1.4-6.[address] [facility] Comment on above: Performed By: #### C BC #### [facility] [address] [place] [address] Dr. Rafael Barragan Neutrophils/100 WBC (Bld) 60.2 % Normal 43.0-75.[address] [facility] Comment on above: Performed By: #### C BC #### [facility] [address] [place] [address] Dr. Rafael Barragan Platelet mean volume (Bld) [Entitic vol] 9.3 fL Critically low 9.5-13.[address] [facility] Comment on above: Performed By: #### C BC #### [facility] [address] [address] [address] Rafael Barragan PLT 351 103/ul Normal 150-[address] [facility] Comment on above: Performed By: #### C BC #### [facility] [address] [address] [address] Rafael Barragan RBC 4.49 106/ul Critically low 4.70-6.10 [facility] Comment on above: Performed By: #### C BC #### [facility] [address] [address] [address] Rafael Barragan WBC 6.0 103/ul Normal 4.0-11.0 [facility] Comment on above: Performed By: #### C BC #### [facility] [address] [address] [address] Rafael Barragan FREE THYROXINE INDEX T7on FTI 2.10 Normal 1.30-4.50 [facility] Comment on above: Performed By: #### T SH, LIPID, T7, CMP #### [facility] [address] [address] [address] Rafael Barragan T3U 35.0 % Normal 33.0-40.0 [facility] Comment on above: Performed By: #### T SH, LIPID, T7, CMP #### [facility] [address] [address] [address] Rafael Barragan T4 [Mass/Vol] 6.00 ug/dL Normal 4.50-12.10 [facility] Comment on above: Performed By: #### T SH, LIPID, T7, CMP #### [facility] [address] [address] [address] Rafael Barragan GLYCOHEMOGLOBIN A1Con 2022 ADA RECOMMENDATION SEE BELOW Normal [facility] Comment on above: Result Comment: ADA RECOMMENDED LIMIT 4.0 - 6.0 ADA THERAPEUTIC TARGET < 7.0 ACTION SUGGESTED > 7.0 Performed By: #### A 1C #### [facility] [address] [address] [address] Rafael Barragan Glucose [Mass/Vol] 114 mg/dL Normal [facility] Comment on above: Performed By: #### A 1C #### [facility] [address] [address] [address] Rafael Barragan HbA1c (Bld) [Mass fraction] 5.6 % Normal 4.5-6.2 [facility] Comment on above: Performed By: #### A 1C #### [facility] [address] [address] [address] Rafael Barragan LIPID PROFILEon 02-17-2023 CHOL-HDL RATIO NORM SEE BELOW Normal [facility] Comment on above: Result Comment: 3.3 - 4.4 LOW RISK 4.4 - 7.1 AVERAGE RISK 7.1 - 11.0 MODERATE RISK >11.0 HIGH RISK Performed By: #### T SH, LIPID, T7, CMP #### [facility] [address] [address] [address] Rafael Barragan Cholesterol [Mass/Vol] 152 mg/dL Normal <=200 [facility] Comment on above: Performed By: #### T SH, LIPID, T7, CMP #### [facility] [address] [address] [address] Rafael Barragan Cholesterol in HDL [Mass/Vol] 65 mg/dL Critically high 40-60 [facility] Comment on above: Performed By: #### T SH, LIPID, T7, CMP #### [facility] [address] [address] [address] Rafael Barragan Cholesterol in LDL [Mass/Vol] 75.8 mg/dL Normal [facility] Comment on above: Performed By: #### T SH, LIPID, T7, CMP #### [facility] [address] [address] [address] Rafael Barragan Cholesterol.total/Cho lesterol in HDL [Mass ratio] 2.3 {ratio} Normal [facility] Comment on above: Performed By: #### T SH, LIPID, T7, CMP #### [facility] [address] [address] [address] Rafael Barragan HDL NORMAL > or = 60 mg/dl - LOW CARDIOVASCULAR RISK <40 mg/dl - HIGH CARDIOVASCULAR RISK Normal [facility] Comment on above: Performed By: #### T SH, LIPID, T7, CMP #### [facility] [address] [address] [address] Rfaael Barragan LDL CALC NORMAL SEE BELOW Normal [facility] Comment on above: Result Comment: <100 mg/dl OPTIMAL 100 - 129 mg/dl NEAR OR ABOVE OPTIMAL 130 - 159 mg/dl BORDERLINE HIGH 160 - 189 mg/dl HIGH >190 mg/dl VERY HIGH Performed By: #### T SH, LIPID, T7, CMP #### [facility] [address] [address] [address] Rafael Barragan Triglyceride [Mass/Vol] 56 mg/dL Normal <=150 [facility] Comment on above: Performed By: #### T SH, LIPID, T7, CMP #### [facility] [address] [address] [address] Rafael Barragan VLDL CALC 11.2 mg/dL Normal [facility] Comment on above: Performed By: #### T SH, LIPID, T7, CMP #### [facility] [address] [address] [address] Rafael Barragan OCC BLD IMMUNO SCREENon 01-28 OCCULT BLOOD Negative Normal NEGATIVE [facility] Comment on above: Performed By: #### O BSCRN #### [facility] [address] [place] [address] Dr. Raafel Barragan PROF 14(COMP METB)on 023 Albumin [Mass/Vol] 3.6 g/dL Normal 3.4-5.0 [facility] Comment on above: Performed By: #### T SH, LIPID, T7, CMP #### [facility] [address] [place] [address] Dr. Rafael Barragan Albumin/Globulin [Mass ratio] 0.9 {ratio} Normal [facility] Comment on above: Performed By: #### T SH, LIPID, T7, CMP #### [facility] [address] [address] [address] Rafael Barragan ALP [Catalytic activity/Vol] 135 U/L Critically high 46-116 [facility] Comment on above: Performed By: #### T SH, LIPID, T7, CMP #### [facility] [address] [address] [address] Rafael Barragan ALT [Catalytic activity/Vol] 22 U/L Normal 16-63 [facility] Comment on above: Performed By: #### T SH, LIPID, T7, CMP #### [facility] [address] [address] [address] Rafael Barragan Anion gap [Moles/Vol] 11.4 mmol/L Normal [facility] Comment on above: Performed By: #### T SH, LIPID, T7, CMP #### [facility] [address] [place] [address] Dr. Rafael Barragan AST [Catalytic activity/Vol] 13 U/L Critically low 15-37 [facility] Comment on above: Performed By: #### T SH, LIPID, T7, CMP #### [facility] [address] [place] [address] Dr. Rafael Barragan Bilirubin [Mass/Vol] 0.4 mg/dL Normal 0.2-1.0 [facility] Comment on above: Performed By: #### T SH, LIPID, T7, CMP #### [facility] [address] [address] [address] Rafael Barragan Calcium [Mass/Vol] 9.7 mg/dL Normal 8.5-10.1 [facility] Comment on above: Performed By: #### T SH, LIPID, T7, CMP #### [facility] [address] [address] [address] Rafael Barragan Chloride [Moles/Vol] 101 mmol/L Normal 98-107 [facility] Comment on above: Performed By: #### T SH, LIPID, T7, CMP #### [facility] [address] [place] [address] Dr. Rafael Barragan CO2 [Moles/Vol] 30.9 mmol/L Normal 21.0-32.0 [facility] Comment on above: Performed By: #### T SH, LIPID, T7, CMP #### [facility] [address] [place] [address] Dr. Rafael Barragan Creatinine [Mass/Vol] 0.82 mg/dL Normal 0.70-1.[address] [facility] Comment on above: Performed By: #### T SH, LIPID, T7, CMP #### [facility] [address] [address] [address] Rafael Barragan EGFR-AF BHUTANESE >60 Normal >=60 [facility] Comment on above: Performed By: #### T SH, LIPID, T7, CMP #### [facility] [address] [address] [address] Rafael Barragan EGFR-NON AF BHUTANESE >60 Normal >=[address] [facility] Comment on above: Performed By: #### T SH, LIPID, T7, CMP #### [facility] [address] [place] [address] Dr. Rafael Barragan Globulin (S) [Mass/Vol] 4.1 g/dL Normal [facility] Comment on above: Performed By: #### T SH, LIPID, T7, CMP #### [facility] [address] [place] [address] Dr. Rafael Barragan Glucose [Mass/Vol] 96 mg/dL Normal 74-106 [facility] Comment on above: Performed By: #### T SH, LIPID, T7, CMP #### [facility] [address] [place] [address] Dr. Rafael Barragan Potassium [Moles/Vol] 4.3 mmol/L Normal 3.5-5.[address] [facility] Comment on above: Performed By: #### T SH, LIPID, T7, CMP #### [facility] [address] [place] [address] Dr. Rafael Barragan Protein [Mass/Vol] 7.7 g/dL Normal 6.4-8.2 [facility] Comment on above: Performed By: #### T SH, LIPID, T7, CMP #### [facility] [address] [place] [address] Dr. Rafael Barragan Sodium [Moles/Vol] 139 mmol/L Normal 136-145 [facility] Comment on above: Performed By: #### T SH, LIPID, T7, CMP #### [facility] [address] [place], [place] [address] Dr. Rafael Barragan Urea nitrogen [Mass/Vol] 17.0 mg/dL Normal 7.0-18.0 [facility] Comment on above: Performed By: #### T SH, LIPID, T7, CMP #### [facility] [address] [place], [place] [address] Dr. Rafael Barragan Urea nitrogen/Creatinine [Mass ratio] 20.7 mg/mg Normal [facility] Comment on above: Performed By: #### T SH, LIPID, T7, CMP #### [facility] [address] [place], [place] [address] Dr. Rafael Barragan TSHon 02-17-2023 TSH 0.680 uIU/mL Normal 0.358-3.740 [facility] Comment on above: Performed By: #### T SH, LIPID, T7, CMP #### [facility] [address] [place], [place] [address] Dr. Rafael Barragan Encounters Encounter Date Encounter Type Care Provider Facility Start: 09-26-2024 End: 09-26-2024 ambulatory Maricruz FERGUSON Facility:[facility] Start: 02-21-2023 Encounter for [facility] adult medical examination without abnormal findings DR LIZ LAU . [facility] Start: 02-19-2023 End: 02-19-[address] LIZ LAU . Facility: Start: 02-19-2023 End: 02-19-2023 Encounter for general adult medical examination without abnormal findings DR LIZ LAU . Facility:[facility] Start: 02-17-2023 End: 02-18-[address] LIZ LAU . Facility:[facility] Start: 09-22-[address] LIZ LAU . Facili ty:[facility] Procedures Date Procedure Procedure Detail Performing Clinician Start: 02-17-[address] AMINATA LAU . Comment on above: Performed By: #### P SASC #### [facility] [address] [place], [place] [address] Dr. Rafael Barragan Payers Date Payer Category Payer Self-pay 1960 Unknown [id number] [id number] [id number] 1960 Unknown [id number] [id number] [id number] 1960 Unknown [id number] [id number] [id number] 1960 Unknown [id number] 1959 Self-pay [id number] 1959 Unknown [id number] Summary Purpose Family History No Family History Records FoundNo Family History Records Found Advance Directives No Advanced Directives Records FoundNo Advanced Directives Records Found Additional Source Comments (unrecognized sect ion and content) No Status Records FoundNo Status Records Found INFORMATION SOURCE (unrecogn ized section and content) DATE CREATED AUTHOR 02/22/2023 [facility] DATE CREATED AUTHOR AUTHOR'S ORGANIZ ATION 09/28/2024 [facility] FOR RECORDS PERTAINING TO PATIENTS WHO ARE [...] BE BASED ON THE PRIMARY CLINICAL RECORDS. [employer] provides no warranty or guarantee of the accuracy or completeness of information in this document.
[2024-12-30 08:45] LABS: Basophils Percent Auto 0.3 % (0.2-2.0); Eosinophils Absolute Auto 0.2 10^3/uL (0.0-0.7); Eosinophils Percent Auto 2.3 % (0.9-7.0); Hematocrit 36.8 % (42.0-54.0); Hemoglobin 11.6 g/dL (14.0-18.0); Immature Granulocytes Abs Auto 0.05 10^3/uL (0.00-0.03); Immature Granulocytes Pct Auto 0.6 % (0.0-0.5); Lymphocytes Absolute Auto 1.5 10^3/uL (1.2-3.8); Mean Corpuscular HGB Conc 31.5 g/dL (29.9-35.2); Mean Corpuscular Hemoglobin 26.9 pg (25.9-34.0); Mean Corpuscular Volume 85.2 fL (80.0-94.0); Mean Platelet Volume 8.8 fL (9.5-13.5); Monocytes Absolute Auto 0.8 10^3/uL (0.3-0.8); Monocytes Percent Auto 8.6 % (1.7-12.0); Neutrophils Absolute Auto 6.6 10^3/uL (1.4-6.5); Neutrophils Percent Auto 72.2 % (43.0-75.0); Platelet Count 308 10^3/uL (150-450); Red Blood Count 4.32 10^6/uL (4.70-6.10); Red Cell Distribution Width 15.4 % (11.0-15.0); White Blood Count 9.1 10^3/uL (4.0-11.0)
[2024-12-30 08:58] LABS: Estimated Average Glucose 131 mg/dL; Glycohemoglobin A1C 6.2 % (4.5-6.2)
[2024-12-30 09:38] LABS: Prostate Specific Antigen Scrn 5.39 ng/mL (<=4.00)
[2024-12-30 09:49] LABS: Alanine Aminotransferase 23 U/L (16-63); Albumin Globulin Ratio 0.7; Albumin Level 2.9 g/dL (3.4-5.0); Alkaline Phosphatase 124 U/L (46-116); Anion Gap 11.2; Aspartate Amino Transferase 14 U/L (15-37); BUN Creatinine Ratio 16.5; Bilirubin Total 0.5 mg/dL (0.2-1.0); Calcium 9.1 mg/dL (8.5-10.1); Carbon Dioxide 31.6 mmol/L (21.0-32.0); Chloride 98 mmol/L (98-107); Cholesterol 121 mg/dL (<=200); Estimated GFR (African America >60 (>=60 mL/min/1.73m^2); Estimated GFR (Non-African Ame >60 (>=60 mL/min/1.73m^2); Free T3 2.17 pg/mL (2.18-3.98); Globulin 3.9 g/dL; Glucose 100 mg/dL (74-106); HDL Cholesterol 61 mg/dL (40-60); Potassium 3.8 mmol/L (3.5-5.1); Sodium 137 mmol/L (136-145); Thyroid Stimulating Hormone 0.072 uIU/mL (0.358-3.740); Total Protein 6.8 g/dL (6.4-8.2); Triglycerides 63 mg/dL (<=150); Uric Acid 5.6 mg/dL (3.5-7.2); VLDL CHOLESTEROL 12.6 mg/dL
[2025-01-02 04:07] LABS: PSA, Free 1.07 ng/mL; Prostate Specific Ag 4.9 ng/mL (0.0-4.0)
== END 2024-12-30 08:30 | disposition home or self-care (01) ==
LOC: LAB 08:30
PROVIDERS: PCP Family Medicine; Visit Provider Family Medicine
DX: Z00.00 Encounter for general adult medical examination without abnormal findings (principal); R97.20 Elevated prostate specific antigen [PSA]
CPT/HCPCS: 36415; 80053; 80061; 83036; 84153; 84154; 84436; 84443; 84481; 84550; 85025; G0103

== ENCOUNTER 2025-04-07 08:21 | Outpatient (OUT) | payer BC, SELFPAY ==
--- OUTSIDE RECORDS SUMMARY | 2025-04-07 08:25 | XMS_ITS | CCD ---
Author Organization [facility] Care Team Providers Care Flight Engineer Inspector Name Role Phone JUDI ., DR HILL [...] Unavailable HOY ., DR HILL Attending Unavailable SvenyLiz Primary Care Physician [phone] Richard TURNER R Attending Unavailable NILL, Richard R Admitting Unavailable NILL, Richard Montes Referring Unavailable MARTYMaricruz Attending Unavailable SvenyLiz Referring Unavailable NILL, Richard R Attending Unavailable NILL, Richard R Admitting Unavailable NILL, Richard R Referring Unavailable NILL, Richard R Attending Unavailable Allergies Allergy Classification Reported Allergen(s) Allergy Type Date of Onset Reaction(s) Facility (3 sources) Cephalexin; Translations: [Keflex] Drug Allergy 4 [facility] Repository (2 sources) Cephalexin; Translations: [cephalexin] Drug Allergy Eruption of skin (disorder) [facility] [place] Medications Current Medications Medication Drug Class(es) Dates Sig (Normalized) Sig (Original) diclofenac sodium 75 mg delayed release oral tablet (2 sources) Nonsteroidal Anti-inflammatory Drug Start: 01-05-2025 take 1 tablet by mouth once daily diclofenac sodium 75 mg Oral EC Tab 75 mg = 1 tab(s), Oral, Daily, Refills(s) 0, Inflammation Start Date: 01/05/25 Status: Ordered Repeat number: 1 levothyroxine sodium 0.112 mg oral tablet (2 sources) l-Thyroxine Start: 02-06-2025 take 1 tablet by mouth once daily levothyroxine 112 mcg (0.112 mg) Tab 112 mcg = 1 tab(s), Oral, Daily, Refills(s) 0, Thyroid Start Date: 02/06/25 Status: Ordered Repeat number: 1 liothyronine sodium 0.025 mg oral tablet (2 sources) l-Triiodothyronine Start: 01-05-2025 take 1 tablet by mouth once daily Cytomel 25 mcg Tab 25 mcg = 1 tab(s), Oral, Daily, Refills(s) 0, Thyroid Start Date: 01/05/25 Status: Ordered Repeat number: 1 Problems Problem Classification Problem Date Documented Da te Episodic/Chronic Anxiety disorders (2 sources) Anxiety 01-05-2025 Chronic Deficiency and other anemia (3 sources) Anemia; Translations: [Anemia, unspecified] Onset: 5 Episodic Other gastrointestinal disorders (2 sources) Gastrointestinal tract problem 03-02-2025 Episodic Other male genital disorders (2 sources) H/O: male genital disorder 01-05-2025 Episodic Other nutritional; endocrine; and metabolic disorders (2 sources) Overweight 01-05-2025 Episodic Other nutritional; endocrine; and metabolic disorders (2 sources) Overweight in adulthood with body mass index of 25 or more but less than 30 02-06-2025 Episodic Other screening for suspected conditions (not mental disorders or infectious disease) (2 sources) Encounter for screening for malignant neoplasm of prostate; Translations: [Elevated prostate specific antigen [PSA]] Onset: 3 Episodic Other upper respiratory disease (2 sources) Chronic rhinitis 01-05-2025 Chronic Thyroid disorders (2 sources) Hypothyroidism 01-05-2025 Chronic Results Test Name Value Interpretation Reference Range Facility XR Upper GI Single Contrasto n 03-08-2025 XR Upper GI Single Contrast Exam Date/Time: 03/08/2025 10:33 EDT Reason for Exam: R19.8;Other (please specify) Report IMPRESSION: NEGATIVE UPPER GI. EXAM: XR Upper GI Single Contrast DATE: 03/08/2025 9:58 AM CLINICAL HISTORY: R19.8. COMPARISON: None available. TECHNIQUE: A double contrast upper GI was performed. FINDINGS: The esophagus is normal in caliber. The stomach, antrum, pylorus and duodenum are normal in morphology, position and caliber. There is no mucosal irregularity, mass, discrete ulcer, or visualized gastroesophageal reflux. Ka,r in mGy = 13.4 DAP = 664.61 (\XB5\Gy*m\XB2\) Ordering Provider: Richard TURNER FINAL REPORT Dictated: 03/08/2025 4:53 pm Abdirizak Delgado MD Signed (Electronic Signature): 03/08/2025 4:53 pm Signed by: Abdirizak Delgado MD Transcribed by: CORIN Technologist: ANMOL Gordon [facility] Main OR Intraoperative Recor don 03-05-2025 Main OR Intraoperative Record Main OR Intraoperative Record IntraOp Document Type FT Summary Primary Physician: Richard TURNER MD Finalized Date/Time: 03/05/25 14:52:17 Pt. Name: DONNY DIEGO Kylie KumarB./Sex: 1960 Male Med Rec #: [id number] Physician: Richard TURNER MD Financial #: [id number] Pt. Type: O Room/Bed: / Admit/Disch: 03/02/25 06:49:30 - 03/03/25 23:59:59 Institution: Case Times FT Entry 1 Patient Times In Room 03/02/25 07:52:00 Out Room 03/02/25 08:22:00 Procedure Times Start 03/02/25 07:55:00 Stop 03/02/25 08:21:00 Anesthesia Times Start 03/02/25 07:52:00 Stop 03/02/25 08:22:00 Time at [facility] 03/02/25 08:13:00 Last Modified By: Brisa CHOE, Katelynn Rowland 03/02/25 08:22:36 General Comments: 0804 EGD completed. /MD,RN 0807 Colonoscopy started. /MD,RN Case Attendance FT Entry 1 Entry 2 Entry 3 Case Attendee Isma Snider CRNA, MD, Richard Ledezma RN, Katelynn Rowland Role Performed VICKI Surgeon - Primary Ruffling Machine Operator - Primary Time In 03/02/25 07:52:00 03/02/25 07:52:00 03/02/25 07:52:00 Time Out 03/02/25 08:22:00 03/02/25 08:22:00 03/02/25 08:22:00 Procedure EGD AND COLONOSCOPY(.) EGD AND COLONOSCOPY(.) EGD AND COLONOSCOPY(.) Comments Dr. Arango supervising case Last Modified By: Desirae Cage CST, RN, Katelynn Ledezma RN, Katelynn 03/05/25 14:48:05 F 03/02/25 08:22:37 F 03/02/25 08:22:37 Entry 4 Case Attendee Cherie Munoz Role Performed Scrub - Primary Time In 03/02/25 07:52:00 Time Out 03/02/25 08:22:00 Procedure EGD AND COLONOSCOPY(.) Comments Last Modified By: Katelynn Ledezma RN 03/02/25 08:22:37 Perioperative Protocols FT Pre-Care Text: Implements protective measures prior to operative or invasive procedure, confirms identity before the operative or invasive procedure, verifies operative procedure, surgical site, and laterality Entry 1 Procedure(s) EGD AND COLONOSCOPY(.) Patient Identity Birthday, ID Band Verified (select at Check, Patient least 2): Participation Consents / H and P Anesthesia Consent, Operative Site N/A Verified H&P, Surgery/Procedure Marking Verified Consent Surgical Site No Laterality Verified n/a Verified Procedure Verified Yes Correct Patient Yes Position Verified Availability Equipment, Medication Prep Dry n/a Verified (If Applicable) PreOp Antibiotic No Time Out Isma Snider CRNA, Given Participants Richard TURNER MD, Dendinger RN, Tammy Sanchez Micala E Time Out Complete 03/02/25 07:53:00 Outcomes Met? Yes Last Modified By: Katelynn Ledezma RN 03/02/25 07:56:17 Post-Care Text: The patient is free from signs and symptoms of injury caused by extraneous objects Allergy Information FT Pre-Care Text: Verifies allergies Entry 1 Allergies Reviewed? Yes Allergies Reviewed Self/Patient With Outcomes Met? Yes Last Modified By: Katelynn Ledezma RN 03/02/25 07:56:32 Post-Care Text: The patient received appropriate medication(s) safely administered during the perioperative period Surgical Procedures FT Entry 1 Procedure Description Procedure EGD AND COLONOSCOPY Modifiers . Surgeon Description EGD. Colonoscopy Primary Procedure Yes Primary Surgeon Richard TURNER MD Start 03/02/25 07:55:00 Stop 03/02/25 08:21:00 Anesthesia Type General Surgical Service General Wound Class 2 - Clean-Contaminated Last Modified By: Katelynn Ledezma RN 03/02/25 08:22:10 General Case Data FT Pre-Care Text: Classifies surgical wound, implements aseptic technique, initiates traffic control Entry 1 Case Information OR ENDO 2 FT Case Level Level 2 Wound Class 2 - Clean-Contaminated Specialty General ASA Class 3 Preop Diagnosis Anemia Postop Same As Preop No Postop Diagnosis EGD- tortuous stomach. Outcomes Met? Yes Colonoscopy- normal. Last Modified By: Katelynn Ledezma RN 03/02/25 08:22:17 Post-Care Text: The patient is free from signs and symptoms of infection Skin Assessment (Pre Procedure) FT Pre-Care Text: Implements protective measures to prevent skin/ tissue injury due to thermal or mechanical sources Evaluates for signs and symptoms of physical injury to skin and tissue Entry 1 Skin Integrity Intact, Canalou, Warm, & Skin Abnormality No Dry Outcomes Met? Yes Last Modified By: Katelynn Ledezma RN 03/02/25 07:57:00 Post-Care Text: The patient is free from signs and symptoms of injury caused by extraneous objects Patient Positioning FT Pre-Care Text: Identifies physical alterations that require additional precautions for procedure-specific positioning, verifies presence of prosthetics or corrective devices, positions the patient, evaluates the patient for signs and symptoms of injury as a result of positioning Entry 1 Procedure EGD AND COLONOSCOPY(.) Body Position Lateral, right side up Feet Uncrossed? Yes Left Arm Position Resting at Side Right Arm Position Resting at Side Left Leg Position (more content not included)... Normal [facility] Reminderson 03-05-2025 Reminders Reminders From: Sherita Ronquillo LPN To: GSN - Clinical; Sent: 03/05/2025 11:06:07 EDT Show up: 01/30/2035 07:00:00 EST Subject: colonoscopy recall Due Date/Time: 03/02/2035 07:00:00 EDT Reminder/Recall Patient due for screening colonoscopy 03/02/2035. Normal [facility] Discharge Instructionson Discharge Instructions Discharge Instruc tions DONNY DIEGO :1960 Visit Date:03/02/2025 Inpatient Discharge Instructions Your Care Team Admitting Physician - Richard TURNER MD Referring Physician - REBECCA PERKINS, Richard Montes Reason for Your Visit ANEMIA Your Diagnosis Anemia This Is Your Medications List diclofenac (diclofenac sodium 75 mg Oral EC Tab) levothyroxine (levothyroxine 112 mcg (0.112 mg) Tab) liothyronine (Cytomel 25 mcg Tab) Procedure History Colonoscopy (03/02/2025), Esophagogastroduodenoscopy (03/02/2025), Laryngoscopy, flexible; diagnostic (08/01/2021), Bx with primary closure left uppwer lip mucosa. (09/24/2016), Nasal septoplasty, Tonsillectomy and adenoidectomy. What to do next Instructions From Your Doctor Event Name Event Result Discharge Activity Resume normal activities in 24 hours, Arrange for a responsible adult supervision for 24 hours Discharge Restrictions No driving for 24 hrs, Do not operate machinery or tools, Do not make important decisions for 24 hours, Do not drink alcoholic beverages for 24 hours Discharge Diet(s) Regular Call Your Doctor For Persistent or heavy bleeding, Temperature above 101.5 degrees, Severe pain at the operative site, Persistent vomiting Discharge Instructions Discharge Instructions New Follow Up Appointments after Discharge Follow Up with Richard TURNER When: Only if needed Where: [address] [place] [address], [facility] [address] [id number] [facility] (1) Medications What How Much When Instructions Next Dose Unchanged diclofenac (diclofenac sodium 75 mg Oral EC Tab) 1 Tablets By Mouth Every day Unchanged levothyroxine (levothyroxine 112 mcg (0.112 mg) Tab) 1 Tablets By Mouth Every day Unchanged liothyronine (Cytomel 25 mcg Tab) 1 Tablets By Mouth Every day Test Results No qualifying data available. Allergies Keflex (Rash) Problems Ongoing - Any problem that you are currently receiving treatment for. Anemia Anxiety BMI 26.0-26.9,adult Chronic rhinitis History of varicocele Hypothyroidism Overweight Education Materials Endoscopy Care After Procedure Please read the instructions outlined below and refer to this sheet in the next few weeks. These discharge instructions provide you with general information on caring for yourself after you leave the hospital. Your doctor may also give you specific instructions. While your treatment has been planned according to the most current medical practices available, unavoidable complications occasionally occur. If you have any problems or questions after discharge, please call your doctor. ACTIVITY ??? You may resume your regular activity but move at a slower pace for the next 24 hours. ??? Take frequent rest periods for the next 24 hours. ??? Walking will help expel (get rid of) the air and reduce the bloated feeling in your abdomen. ??? No driving for 24 hours (because of the anesthesia (medicine) used during the test). ??? You may shower. ??? Do not sign any important legal documents or operate any machinery for 24 hours (because of the anesthesia used during the test). NUTRITION ??? Drink plenty of fluids. ??? You may resume your normal diet. ??? Begin with a light meal and progress to your normal diet. ??? Avoid alcoholic beverages for 24 hours or as instructed by your caregiver. MEDICATIONS ??? You may resume your normal medications unless your caregiver tells you otherwise. WHAT YOU CAN EXPECT TODAY ??? You may experience abdominal discomfort such as a feeling of fullness or ???gas??? pains. FOLLOW-UP ??? Your doctor will discuss the results of your test with you. SEEK IMMEDIATE MEDICAL ATTENTION IF ANY OF THE FOLLOWING OCCUR: ??? Excessive nausea (feeling sick to your stomach) and/or vomiting. ??? Severe abdominal pain and distention (swelling). ??? Trouble swallowing. ??? Temperature over 100 F (37.8??? C). ??? Rectal bleeding or vomiting of blood. Document Released: 06/29/2005 Document Re-Released: 05/09/2007 ExitCare??? Patient Information ???2009 [employer]. Colonoscopy Care After Surgery Please read the instructions outlined below and refer to this sheet in the next few weeks. These discharge instructions provide you with general information on caring for yourself after you leave the hospital. Your doctor may also give you specific instructions. While your treatment has been planned according to the most current medical practices available, unavoidable complications occasionally occur. If you have any problems or questions after discharge, please call your doctor. ACTIVITY You may resume your regular activity, but move at a slower pace for the next 24 hours. Take frequent rest periods for the next 24 hours. Walking will help get rid of the air and reduce the bloated feeling in your abdomen (belly). No driving for 24 hours (becau (more content not included)... Normal [facility] Comment on above: Result Comment: Elec tronically Signed By: Simeon CHOE, Malathi Mancilla\.br\Date and Time Signed: 03/02/25 08:32 EDT EGDon 03-02-2025 Esophagogastroduodenoscop y EGD Patient: DONNY DIEGO Age: 64 years Sex: Male : 1960 Associated Diagnoses: None Author: Richard TURNER MD Pre-Procedure Procedure Date 03/02/2025 08:20:00 . Procedure Type: Esophagogastroduodenoscopy . Procedure provider Richard Turner MD. Referred by Lzi Wiley MD. Current history and physical Documented on chart. Pre-procedure diagnosis: Diagnostic: iron deficiency anemia. ASA Classification: Class II. . Monitoring: See anesthesia record. . Procedure The procedure was performed in the hospital. See anesthesia record for sedation given during procedure. The patient was positioned starting in the left lateral decubitus position. Endoscope type used was an adult-size, introduced orally, advanced to the body of the stomach, stomach: tortuous distal stomach, unable to advance to antrum/pylorus/duodenum; possible paraesophageal hernia.. The procedure was incomplete due to an anatomical abnormality. Views were good. The patient tolerated the procedure well. Findings Examination of the esophagus revealed a normal esophagus. A hiatal hernia was identified 2 cm in length. The hernia is described as a sliding hernia. Post-Procedure Complications: none. Estimated blood loss: none. Devices/ implants: none left in place. Impression and Plan EGD: Diagnosis: Anemia (LTA23-ML D64.9, Discharge, Medical), Anemia (IGI67-NE D64.9, Discharge, Medical). Course: Progressing as expected. Education and Follow-up: Counseled: Family. Normal [facility] Inpatient Patient Summaryon 03-02-2025 Inpatient Patient Summary Inpatient Marianne ent Summary [place] [address] [id number] [facility] Clinical Discharge Instructions PERSON INFORMATION Name: DONNY DIEGO [facility]#:[id number] PHYSICIANS Admitting Physician: Richard TURNER MD Attending Physician: Richard TURNER MD PCP: Liz Wiley MD Discharge Diagnosis: Anemia Comment: PATIENT EDUCATION INFORMATION Instructions: Medication Leaflets: Follow up: With: Address: When: Richard REBECCA [address], [address], [facility] [address] [place] [address] Business (1) , only if needed MEDICATION LIST Medications to Continue with No Changes Other Medications diclofenac (diclofenac sodium 75 mg Oral EC Tab) 1 Tablets By Mouth every day. levothyroxine (levothyroxine 112 mcg (0.112 mg) Tab) 1 Tablets By Mouth every day., Responsible Provider: LIZ WILEY liothyronine (Cytomel 25 mcg Tab) 1 Tablets By Mouth every day. Comment: Normal [facility] Main OR PACU II Recordon Main OR PACU II Record Main OR PACU II R ecord PACU Phase II Document Type FT Summary Primary Physician: Richard TURNER MD Finalized Date/Time: 03/02/25 09:22:48 Pt. Name: DONNY DIEGO /Sex: 1960 Male Med Rec #: [id number] Physician: Richard TURNER MD Financial #: [id number] Pt. Type: O Room/Bed: / Admit/Disch: 03/02/25 06:49:30 - Institution: Case Times PACU II FT Pre-Care Text: Identifies barriers to communication and implements measures to provide psychological support and determines knowledge level Develops individualized plan of care, and ensures continuity of care Maintains patient's dignity and privacy, and maintains patient confidentiality Identifies and reports philosophical, cultural, and spiritual beliefs and values Identifies individual values and wishes concerning care administers prescribed antibiotic therapy and immunizing agents as ordered, Evaluates postoperative tissue perfusion Implements thermoregulation measures, and monitors body temperature Evaluates postoperative respiratory status Evaluates postoperative cardiac status Evaluates postoperative neurological status Assesses pain control, collaborated in initiating patient-controlled analgesia and implements alternative methods of pain control Verifies allergies, administers prescribed medications and solutions, evaluates response to medications Entry 1 In PACU II 03/02/25 08:25:00 Discharge from PACU 03/02/25 09:00:00 II Outcomes Met? Yes Last Modified By: Malathi Hendrix RN 03/02/25 09:22:25 Post-Care Text: The patient demonstrates knowledge of the expected response to the operative or invasive procedure The patient's care is consistent with the individualized perioperative plan of care The patient's right to privacy is maintained The patient's value system, lifestyle, ethnicity, and culture are considered, respected, and incorporated into the perioperative plan of care The patient participates in decisions affecting his or her perioperative plan of care. The patient is free from signs and symptoms of infection The patient has wound/tissue perfusion consistent with or improved from baseline levels established preoperatively The patient is at or returning to normothermia at the conclusion of the immediate postoperative period The patient's respiratory function is consistent with or improved from baseline levels established preoperatively The patient's cardiovascular status is consistent with or improved from baseline levels established preoperatively The patient's neurological status is consistent with or improved from baseline levels established preoperatively The patient demonstrates and/or reports adequate pain control throughout the perioperative period The patient received appropriate medication(s), safely administered during the perioperative period Finalized By: Malathi Hendrix RN Document Signatures Signed By: Malathi Hendrix RN 03/02/25 09:22 [facility] Main OR Preoperative Recordo n 03-02-2025 Main OR Preoperative Record Main OR Preoperative Record Holding Area Document Type FT Summary Primary Physician: Richard TURNER MD Finalized Date/Time: 03/02/25 07:10:07 Pt. Name: LUCIAMOONDONNY/Sex: 1960 Male Med Rec #: [id number] Physician: Richard TURNER MD Financial #: [id number] Pt. Type: O Room/Bed: / Admit/Disch: 03/02/25 06:49:30 - Institution: Case Times Holding FT Pre-Care Text: Verifies consent for planned procedure, identifies individual values and wishes concerning care, includes family members in perioperative teaching Secures patient's records' belongings, and valuables, maintains patient's dignity and privacy, and maintains patient confidentiality Entry 1 In Holding 03/02/25 06:55:00 Outcomes Met? Yes Last Modified By: Nkechi Le RN 03/02/25 06:59:32 Post-Care Text: The patient participates in decisions affecting his or her perioperative plan of care The patient's right to privacy is maintained Surgery Checklist FT Entry 1 Patient Birthday, ID Band Procedure History and Physical, Identification: Check, Patient Verification: Surgical Consent, With Participation Patient NPO after Midnight: No Date/Time: 03/02/25 02:00:00 Personal Items: Glasses Limitations: vision Complaints of Pain: Yes Pain Comment: abdominal cramping Operative Site n/a Availability Equipment Marking: Verified: Does Patient Smoke No Patient states Yes Comment - Adult - Bobbi postop adult Supervision supervision available Case Cancelled in No Holding Area see comments below for reason Last Modified By: Nkechi Le RN 03/02/25 07:10:01 General Comments: Pt. NPO since bowel prep finished at 0200/AW RN Finalized By: Nkechi Le RN Document Signatures Signed By: Nkechi Le RN 03/02/25 07:10 Normal [facility] Outpatient Surgery Discharge Instructionon 03-02-2025 Outpatient Surgery Discharge Instruction Outpatient Surgery Discharge Instruction [address] [address] Patient Discharge Instructions PERSON INFORMATION Name: DONNY DIEGO Date of : 1960 Current Date: 03/02/2025 08:26:15 PHYSICIANS Admitting Physician: Richard TURNER MD Discharge Diagnosis: Anemia DONNY DIEGO has been given the following list of follow-up instructions, prescriptions, and patient education materials: PATIENT FOLLOW-UP INFORMATION Diet: Regular Discharge Activity: Resume normal activities in 24 hours, Arrange for a responsible adult supervision for 24 hours Discharge Restrictions: No driving for 24 hrs, Do not operate machinery or tools, Do not make important decisions for 24 hours, Do not drink alcoholic beverages for 24 hours Call Your Doctor For: Persistent or heavy bleeding, Temperature above 101.5 degrees, Severe pain at the operative site, Persistent vomiting IF UNABLE TO CONTACT YOUR PHYSICIAN AND YOU FEEL IT IS AN EMERGENCY, GO TO THE NEAREST EMERGENCY ROOM OR CALL 911 IJOHNATHON DANNY L, have received the attached patient education materials/instructions and have verbalized understanding: May we do a follow up call? Yes No I was present when discharge instructions were given ____ Patient Signature _ Date Clinican/Nurse Signature Date Follow up: With: Address: When: [address], [address], [place] [address] [facility] (1) , only if needed Pharmacy Information: You may receive a survey from [employer] asking you to rate your care experience. Your feedback is important and will help us understand what we do well and how we can improve the quality of care we provide to you, your loved ones and our community. It???s an honor to serve you. Thank you for choosing [facility] HERE ARE THE MEDICATION CHANGES THAT OCCURRED DURING YOUR HOSPITAL STAY Medications to Continue with No Changes Other Medications diclofenac (diclofenac sodium 75 mg Oral EC Tab) 1 Tablets By Mouth every day. levothyroxine (levothyroxine 112 mcg (0.112 mg) Tab) 1 Tablets By Mouth every day., Responsible Provider: HOY, LIZ RICHARD liothyronine (Cytomel 25 mcg Tab) 1 Tablets By Mouth every day. PATIENT EDUCATION INFORMATION Instructions: Medication Leaflets: Normal [facility] Ambulatory Visit Summaryon 0 02-06-2025 Ambulatory Visit Summary Ambulatory Visi t Summary DONNY DIEGO :1960 Visit Date:02/06/2025 Ambulatory Visit Instructions Your Diagnosis Anemia Your Care Team Attending Physician - Richard TURNER MD Primary Care Physician - Liz Wiley MD Referring Physician - Liz Wiley MD This Is Your Medications List Contact prescribing physician if questions or concerns diclofenac (diclofenac sodium 75 mg Oral EC Tab) levothyroxine (levothyroxine 112 mcg (0.112 mg) Tab) liothyronine (Cytomel 25 mcg Tab) Procedures Performed Laryngoscopy, flexible; diagnostic (08/01/2021), Bx with primary closure left uppwer lip mucosa. (09/24/2016), Nasal septoplasty, Tonsillectomy and adenoidectomy. Discharge Vitals Heart Rate (Peripheral) 88 Respiratory Rate 16 Blood Pressure 123/69 Height 185 cm Height 73 in Weight 91.3 kg Weight 201.282 lb BMI 26.68 Medications What How Much When Instructions Unchanged diclofenac (diclofenac sodium 75 mg Oral EC Tab) 1 Tablets By Mouth 2 times a day Contact prescribing physician if questions or concerns Unchanged levothyroxine (levothyroxine 112 mcg (0.112 mg) Tab) 90 EA, 0 Refill(s), TAKE 1 TABLET BY MOUTH EVERY DAY FOR 30 DAYS Contact prescribing physician if questions or concerns Unchanged liothyronine (Cytomel 25 mcg Tab) 1 Tablets By Mouth Every day Contact prescribing physician if questions or concerns Allergies Keflex (Rash) Problems Ongoing - Any problem that you are currently receiving treatment for. Anemia Anxiety BMI 26.0-26.9,adult Chronic rhinitis History of varicocele Hypothyroidism Overweight Patient Survey You may receive a survey via text or e-mail asking about your office visit. Please share your experience with us by completing your survey. We appreciate your feedback and thank you for choosing us for your care. Normal [facility] PSA, FREE AND TOTAL RATIOon 02-19-2023 % Free PSA 22.3 % Normal [facility] Comment on above: Result Comment: [...] men. Performed By: #### P SAFREE #### [facility] [address] [place] [address] Dr. Rafael Barragan Prostate specific Ag [Mass/Vol] 3.5 ng/mL Normal 0.0-4.[address] [facility] Comment on above: Result Comment: Bell cox ECLIA methodology. . According to the [place] [employer], Serum PSA should decrease and [...] disease. Performed By: #### P SAFREE #### [facility] [address] [place] [address] Dr. Rafael Barragan PSA, Free 0.78 ng/mL Normal N/A [facility] Comment on above: Result Comment: Bell ESPINO methodology. Performed By: #### P SAFREE #### [facility] [address] [place] [address] Dr. Rafael Barragan CBC AUTO DIFFon 02-17-2023 BASO # 0.0 103/ul Normal 0.0-0.[address] [facility] Comment on above: Performed By: #### C BC #### [facility] [address] [place] [address] Dr. Rafael Barragan Basophils/100 WBC (Bld) 0.7 % Normal 0.2-2.0 [facility] Comment on above: Performed By: #### C BC #### [facility] [address] [place] [address] Dr. Rafael Barragan EO # 0.2 103/ul Normal 0.0-0.[address] [facility] Comment on above: Performed By: #### C BC #### [facility] [address] [place] [address] Dr. Rafael Barragan Eosinophils/100 WBC (Bld) 2.6 % Normal 0.9-7.[address] [facility] Comment on above: Performed By: #### C BC #### [facility] [address] [place] [address] Dr. Rafael Barragan Erythrocyte distribution width (RBC) [Ratio] 14.3 % Normal 11.0-15.[address] [facility] Comment on above: Performed By: #### C BC #### [facility] [address] [place] [address] Dr. Rafael Barragan Hematocrit (Bld) [Volume fraction] 39.7 % Critically low 42.0-54.[address] [facility] Comment on above: Performed By: #### C BC #### [facility] [address] [place] [address] Dr. Rafael Barragan Hemoglobin (Bld) [Mass/Vol] 12.8 g/dL Critically low 14.0-18.[address] [facility] Comment on above: Performed By: #### C BC #### [facility] [address] [place] [address] Dr. Rafael Barragan IG # 0.02 10e3/ul Normal 0.00-0.[address] [facility] Comment on above: Performed By: #### C BC #### [facility] [address] [place] [address] Dr. Rafael Barragan IG % 0.3 % Normal 0.0-0.5 [facility] Comment on above: Performed By: #### C BC #### [facility] [address] [place] [address] Dr. Rafael Barragan LYMPH # 1.7 103/ul Normal 1.2-3.8 [facility] Comment on above: Performed By: #### C BC #### [facility] [address] [place] [address] Dr. Rafael Barragan Lymphocytes/100 WBC (Bld) 27.6 % Normal 20.5-60.[address] [facility] Comment on above: Performed By: #### C BC #### [facility] [address] [place] [address] Dr. Rafael Barragan MANUAL DIFF REQ NO Normal [facility] Comment on above: Performed By: #### C BC #### [facility] [address] [place] [address] Dr. Rafael Barragan MCH (RBC) [Entitic mass] 28.5 pg Normal 25.9-34.[address] [facility] Comment on above: Performed By: #### C BC #### [facility] [address] [place] [address] Dr. Rafael Barragan MCHC (RBC) [Mass/Vol] 32.2 g/dL Normal 29.9-35.[address] [facility] Comment on above: Performed By: #### C BC #### [facility] [address] [place] [address] Dr. Rafael Barragan MCV (RBC) [Entitic vol] 88.4 fL Normal 80.0-94.0 [facility] Comment on above: Performed By: #### C BC #### [facility] [address] [place] [address] Dr. Rafael Barragan MONO # 0.5 103/ul Normal 0.3-0.[address] [facility] Comment on above: Performed By: #### C BC #### [facility] [address] [place] [address] Dr. Rafael Barragan Monocytes/100 WBC (Bld) 8.6 % Normal 1.7-12.0 [facility] Comment on above: Performed By: #### C BC #### [facility] [address] [place] [address] Dr. Rafael Barragan NEUT # 3.6 103/ul Normal 1.4-6.[address] [facility] Comment on above: Performed By: #### C BC #### [facility] [address] [address] [address] Rafael Barragan Neutrophils/100 WBC (Bld) 60.2 % Normal 43.0-75.0 [facility] Comment on above: Performed By: #### C BC #### [facility] [address] [address] [address] Rafael Barragan Platelet mean volume (Bld) [Entitic vol] 9.3 fL Critically low 9.5-13.5 [facility] Comment on above: Performed By: #### C BC #### [facility] [address] [address] [address] Rafael Barragan PLT 351 103/ul Normal 150-450 [facility] Comment on above: Performed By: #### C BC #### [facility] [address] [place] [address] Dr. Rafael Barragan RBC 4.49 106/ul Critically low 4.70-6.10 [facility] Comment on above: Performed By: #### C BC #### [facility] [address] [address] [address] Rafael Barragan WBC 6.0 103/ul Normal 4.0-11.[address] [facility] Comment on above: Performed By: #### C BC #### [facility] [address] [address] [address] Rafael Barragan FREE THYROXINE INDEX T7on FTI 2.10 Normal 1.30-4.50 [facility] Comment on above: Performed By: #### T SH, LIPID, T7, CMP #### [facility] [address] [place] [address] Dr. Rafael Barragan T3U 35.0 % Normal 33.0-40.0 [facility] Comment on above: Performed By: #### T SH, LIPID, T7, CMP #### [facility] [address] [address] [address] Rafael Barragan T4 [Mass/Vol] 6.00 ug/dL Normal 4.50-12.10 [facility] Comment on above: Performed By: #### T SH, LIPID, T7, CMP #### [facility] [address] [address] [address] Rafael Barragan GLYCOHEMOGLOBIN A1Con 2022 ADA RECOMMENDATION SEE BELOW Normal [facility] Comment on above: Result Comment: ADA RECOMMENDED LIMIT 4.0 - 6.0 ADA THERAPEUTIC TARGET < 7.0 ACTION SUGGESTED > 7.0 Performed By: #### A 1C #### [facility] [address] [address] [address] Rafael Barragan Glucose [Mass/Vol] 114 mg/dL Normal [facility] Comment on above: Performed By: #### A 1C #### [facility] [address] [place] [address] Dr. Rafael Barraagn HbA1c (Bld) [Mass fraction] 5.6 % Normal 4.5-6.[address] [facility] Comment on above: Performed By: #### A 1C #### [facility] [address] [place] [address] Dr. Rafael Barragan LIPID PROFILEon 02-17-2023 CHOL-HDL RATIO NORM SEE BELOW Normal [facility] Comment on above: Result Comment: 3.3 - 4.4 LOW RISK 4.4 - 7.1 AVERAGE RISK 7.1 - 11.0 MODERATE RISK >11.0 HIGH RISK Performed By: #### T SH, LIPID, T7, CMP #### [facility] [address] [place] [address] Dr. Rafael Barragan Cholesterol [Mass/Vol] 152 mg/dL Normal <=200 [facility] Comment on above: Performed By: #### T SH, LIPID, T7, CMP #### [facility] [address] [place] [address] Dr. Rafael Barragan Cholesterol in HDL [Mass/Vol] 65 mg/dL Critically high 40-[address] [facility] Comment on above: Performed By: #### T SH, LIPID, T7, CMP #### [facility] [address] [place] [address] Dr. Rafael Barragan Cholesterol in LDL [Mass/Vol] 75.8 mg/dL Normal [facility] Comment on above: Performed By: #### T SH, LIPID, T7, CMP #### [facility] [address] [address] [address] Rafael Barragan Cholesterol.total/Cholest nesha in HDL [Mass ratio] 2.3 {ratio} Normal [facility] Comment on above: Performed By: #### T SH, LIPID, T7, CMP #### [facility] [address] [address] [address] Rafael Barragan HDL NORMAL > or = 60 mg/dl - LO W CARDIOVASCULAR RISK <40 mg/dl - HIGH CARDIOVASCULAR RISK Normal [facility] Comment on above: Performed By: #### T SH, LIPID, T7, CMP #### [facility] [address] [place] [address] Dr. Rafael Barragan LDL CALC NORMAL SEE BELOW Normal [facility] Comment on above: Result Comment: <100 mg/dl OPTIMAL 100 - 129 mg/dl NEAR OR ABOVE OPTIMAL 130 - 159 mg/dl BORDERLINE HIGH 160 - 189 mg/dl HIGH >190 mg/dl VERY HIGH Performed By: #### T SH, LIPID, T7, CMP #### [facility] [address] [place] [address] Dr. Rafael Barragan Triglyceride [Mass/Vol] 56 mg/dL Normal <=150 T [facility] Comment on above: Performed By: #### T SH, LIPID, T7, CMP #### [facility] [address] [place] [address] Dr. Rafael Barragan VLDL CALC 11.2 mg/dL Normal [facility] Comment on above: Performed By: #### T SH, LIPID, T7, CMP #### [facility] [address] [place] [address] Dr. Rafael Barragan OCC BLD IMMUNO SCREENon 01-28 OCCULT BLOOD Negative Normal NEGATIVE [facility] Comment on above: Performed By: #### O BSCRN #### [facility] [address] [place] [address] Dr. Rafael Barragan PROF 14(COMP METB)on 023 Albumin [Mass/Vol] 3.6 g/dL Normal 3.4-5.[address] [facility] Comment on above: Performed By: #### T SH, LIPID, T7, CMP #### [facility] [address] [address] [address] Rafael Barragan Albumin/Globulin [Mass ratio] 0.9 {ratio} Normal [facility] Comment on above: Performed By: #### T SH, LIPID, T7, CMP #### [facility] [address] [address] [address] Rafael Barragan ALP [Catalytic activity/Vol] 135 U/L Critically high 46-[address] [facility] Comment on above: Performed By: #### T SH, LIPID, T7, CMP #### [facility] [address] [address] [address] Rafael Barragan ALT [Catalytic activity/Vol] 22 U/L Normal 16-[address] [facility] Comment on above: Performed By: #### T SH, LIPID, T7, CMP #### [facility] [address] [place] [address] Dr. Rafael Barragan Anion gap [Moles/Vol] 11.4 mmol/L Normal [facility] Comment on above: Performed By: #### T SH, LIPID, T7, CMP #### [facility] [address] [address] [address] Rafael Barragan AST [Catalytic activity/Vol] 13 U/L Critically low 15-[address] [facility] Comment on above: Performed By: #### T SH, LIPID, T7, CMP #### [facility] [address] [address] [address] Rafael Barragan Bilirubin [Mass/Vol] 0.4 mg/dL Normal 0.2-1.[address] [facility] Comment on above: Performed By: #### T SH, LIPID, T7, CMP #### [facility] [address] [address] [address] Rafael Barragan Calcium [Mass/Vol] 9.7 mg/dL Normal 8.5-10.[address] [facility] Comment on above: Performed By: #### T SH, LIPID, T7, CMP #### [facility] [address] [address] [address] Rafael Barragan Chloride [Moles/Vol] 101 mmol/L Normal 98-[address] [facility] Comment on above: Performed By: #### T SH, LIPID, T7, CMP #### [facility] [address] [address] [address] Rafael Barragan CO2 [Moles/Vol] 30.9 mmol/L Normal 21.0-32.[address] [facility] Comment on above: Performed By: #### T SH, LIPID, T7, CMP #### [facility] [address] [place] [address] Dr. Rafael Barragan Creatinine [Mass/Vol] 0.82 mg/dL Normal 0.70-1.[address] [facility] Comment on above: Performed By: #### T SH, LIPID, T7, CMP #### [facility] [address] [place] [address] Dr. Rafael Barragan EGFR-AF SUDANESE >60 Normal >=[address] [facility] Comment on above: Performed By: #### T SH, LIPID, T7, CMP #### [facility] [address] [place] [address] Dr. Rafael Barragan EGFR-NON AF SUDANESE >60 Normal >=[address] [facility] Comment on above: Performed By: #### T SH, LIPID, T7, CMP #### [facility] [address] [place] [address] Dr. Rafael Barragan Globulin (S) [Mass/Vol] 4.1 g/dL Normal T [facility] Comment on above: Performed By: #### T SH, LIPID, T7, CMP #### [facility] [address] [place] [address] Dr. Rafael Barragan Glucose [Mass/Vol] 96 mg/dL Normal 74-106 [facility] Comment on above: Performed By: #### T SH, LIPID, T7, CMP #### [facility] [address] [place] [address] Dr. Rafael Barragan Potassium [Moles/Vol] 4.3 mmol/L Normal 3.5-5.[address] [facility] Comment on above: Performed By: #### T SH, LIPID, T7, CMP #### [facility] [address] [place] [address] Dr. Rafael Barragan Protein [Mass/Vol] 7.7 g/dL Normal 6.4-8.[address] [facility] Comment on above: Performed By: #### T SH, LIPID, T7, CMP #### [facility] [address] [address] [address] Rafael Barragan Sodium [Moles/Vol] 139 mmol/L Normal 136-[address] [facility] Comment on above: Performed By: #### T SH, LIPID, T7, CMP #### [facility] [address] [address] [address] Rafael Barragan Urea nitrogen [Mass/Vol] 17.0 mg/dL Normal 7.0-18.[address] [facility] Comment on above: Performed By: #### T SH, LIPID, T7, CMP #### [facility] [address] [address] [address] Rafael Barragan Urea nitrogen/Creatinine [Mass ratio] 20.7 mg/mg Normal [facility] Comment on above: Performed By: #### T SH, LIPID, T7, CMP #### [facility] [address] [address] [address] Rafael Barragan TSHon 02-17-2023 TSH 0.680 uIU/mL Normal 0.358-3.[address] [facility] Comment on above: Performed By: #### T SH, LIPID, T7, CMP #### [facility] [address] [place] [address] Dr. Rafael Barragan Vital Signs Date Time Vital Sign Value Performing Clinician Demondi lity 03-02-2025 08:50-0400 SaO2% (BldA) [Mass fraction] 95 % Richard TURNER [facility] 03-02-2025 08:50-0400 Heart rate 73 /min Richard TURNER [facility] 03-02-2025 08:50-0400 Respiratory rate 18 /min Richard TURNER [facility] 03-02-2025 08:50-0400 Diastolic blood pressure 81 mm[Hg] Richard NILL [facility] 03-02-2025 08:50-0400 Systolic blood pressure 128 mm[Hg] Richard NILL [facility] 03-02-2025 08:35-0400 Heart rate 82 /min Richard NILL [facility] 03-02-2025 08:35-0400 Respiratory rate 15 /min Richard NILL [facility] 03-02-2025 08:35-0400 SaO2% (BldA) [Mass fraction] 96 % Richard NILL [facility] 03-02-2025 08:35-0400 Diastolic blood pressure 78 mm[Hg] Richard NILL [facility] 03-02-2025 08:35-0400 Systolic blood pressure 122 mm[Hg] Richard NILL [facility] 03-02-2025 08:25-0400 Respiratory rate 10 /min Richard NILL [facility] 03-02-2025 08:25-0400 SaO2% (BldA) [Mass fraction] 95 % Richard NILL [facility] 03-02-2025 08:25-0400 Diastolic blood pressure 69 mm[Hg] Richard NILL [facility] 03-02-2025 08:25-0400 Systolic blood pressure 107 mm[Hg] Richard NILL [facility] 03-02-2025 08:25-0400 Body temperature 97.88 [degF] Richard NILL [facility] 03-02-2025 08:25-0400 Heart rate 68 /min Richard NILL [facility] 03-02-2025 07:07-0400 Blood Pressure Location Richard TURNER [facility] 03-02-2025 07:07-0400 Body temperature 98.06 [degF] Richard ALVARADOL [facility] Encounters Encounter Date Encounter Type Care Provider Facility Start: 03-08-2025 End: 03-08-2025 ambulatory Richard ALVARADOL Facility:[facility] Start: 03-08-2025 End: 03-08-2025 Patient encounter procedure Richard ALVARADOL [facility] Start: 03-02-2025 End: 03-02-2025 ambulatory Richard ALVARADOL Facility:[facility] Start: 03-02-2025 End: 03-03-2025 Patient encounter procedure Richard ALVARADOL [facility] Start: 02-06-2025 End: 02-06-2025 ambulatory Liz Wiley Facility:[facility] Start: 01-30-2025 ambulatory Richard REBECCA [facility] Start: 01-02-2025 ambulatory Richard JENNYL Facility: [facility] Start: 09-26-2024 End: 09-26-2024 ambulatory Maricruz FERGUSON Facility:[facility] Start: 02-21-2023 Encounter for genera l adult medical examination without abnormal findings DR LIZ WILEY . [facility] Start: 02-19-2023 End: 02-19-[address] LIZ WILEY . Facility: Start: 02-19-2023 End: 02-19-2023 Encounter for general adult medical examination without abnormal findings DR LIZ WILEY . Facility: Start: 02-17-2023 End: 02-18-[address] LIZ WILEY . Facility: Start: 09-22-[address] LIZ WILEY . Facili ty:[facility] Procedures Date Procedure Procedure Detail Performing Clinician Start: 03-02-2025 Colonoscopy Richard ALVARADOKylie Start: 03-02-2025 Esophagogastroduodenoscopy Richard TURNER Start: 02-17-[address] LIZ WILEY . Comment on above: Performed By: #### PSASC #### [facility] [address] [place] [address] Dr. Rafael Barragan Start: 08-01-2021 Laryngoscopy flexible diagnostic Richard TURNER Start: 09-24-2016 Bx with primary closure left uppwer lip mucosa. Richard TURNER Nasal septoplasty Richard WARNER Tonsillectomy and adenoidectomy Richard TURNER Payers Date Payer Category Payer Unknown [id number] 2022 Self-pay 1960 Unknown [id number] 2.16.84 [id number] 1960 Unknown [id number] 2.16.84 [id number] 1960 Unknown [id number] 2.16.84 [id number] 1960 Unknown [id number] 2.16.8 [id number] 1960 Unknown [id number] 2.16.8 [id number] 1960 Unknown [id number] 2.16.8 [id number] 1960 Unknown [id number] 2.16.8 [id number] 1960 Unknown [id number] 2.16.8 [id number] 1959 Self-pay [id number] 1959 Unknown [id number] Social History Date Type Detail Facility Start: 02-06-2025 Tobacco smoking status Never s moked tobacco (finding) [facility] Tobacco smoking status Never Nbae [facility] Sexual Orientation [facility] Sex Assigned At Male [facility] Start: 03-12-2010 Sex Male (finding) [facility] Functional Status Date Assessment Result Facility 03-02-2025 Functional Status N/A [facility] Clinical Notes 03-02-2025 to 03-27-2025 Note Date & Type Note Facility 03-27-2025 Note General Surgery Offi ce/Clinic Note Chief Complaint consultation for anemia HPI Staff 64 year old male presents on consultation from Dr. Wiley for anemia. Labs completed 12/30 with H/H 11.6 and 36.8. Denies dizziness, lightheadedness, fatigue or SOB. Denies abdominal or rectal pain. No rectal bleeding or change in bowel habits. Denies nausea or vomiting. No unexplained weight loss. Never had colonoscopy in the past. No known family history of colon cancer. History of Present Illness 64 yo male with h/o hypothyroidism, anxiety, referred for anemia, last h/h 11.6/36.8; patient denies change in bms or blood in stools, no abd complaints, no GERD or dysphagia, no early satiety or wt loss, no h/o ulcer disease; no abd operations or previous endoscopy; on Diclfenac daily, no asa; no tobacco use; no fmhx of GI malignancy or IBD. Review of Systems PHQ Score Initial Depression Screen Score: 0 SCORE ROS - Provider Constitutional: no fever, no sweats, no weight loss. Eyes: no glasses, no blurred vision, no visual loss. ENMT: no dentures, no hoarseness, no swallowing difficulties, no hearing loss, no ear infection(s), no nose bleeds. Cardiovascular: normal blood pressure, no chest pain, regular heartbeat, no heart murmur. Respiratory: no shortness of breath, no cough, no asthma, no wheezing. Gastrointestinal: no nausea, no vomiting, no diarrhea, no constipation, no blood in stool, no change in bowel habits, no abdominal pain, no hepatitis. Genitourinary: no kidney stones, no urine infection, no dysuria. Musculoskeletal: no pain, no weakness. Skin: no changing moles, no rash, no skin lumps. Neurologic: no seizures, no epilepsy, no headache. Psychiatric: no emotional or psychiatric problem. Heme/Lymph: no bleeding problems, no anemia, no blood clots, no transfusions. Allergy/Immunologic: no swollen lymph nodes/glands, no IV drug abuse. Other: Additional ROS info: Except as noted in the above Review of Systems and in the History of Present Illness, all other systems have been reviewed and are negative or noncontributory. Physical Exam Vitals & Measurements HR: 88(Peripheral) RR: 16 BP: 123/69 HT: 73 in HT: 185 cm WT: 91.3 kg WT: 201.282 lb BMI: 26.68 HEENT: normal conjunctiva, sclera clear, no scleral icterus, EOM intact, PERRLA, oral mucosa moist without lesions. Neck: trachea midline, no mass, symmetric, no thyromegaly or nodules, no adenopathy Respiratory: lungs CTA, respirations non labored. Cardiovascular: regular rate and rhythm, no murmur, no pedal edema or varicosities. Gastrointestinal: soft, non distended, no tenderness, no masses, no palpable hernias, diastasis recti no, no hepatosplenomegaly; normal bs Lymphatic: no cervical adenopathy, no supraclavicular adenopathy. Musculoskeletal: normal gait, digits and nails without infection, nodes, cyanosis, clubbing. Skin: no rashes, no lesions, no ulcers, no subcutaneous nodules, induration. Psychiatric/Neuro: oriented to time, place, person, judgement normal, affect appropriate for age, insight intact, no focal deficits. Tests: labs reviewed, review of old records completed , Discussed surgical options, risks, and possible complications with patient. Assessment/Plan 1. Anemia (D64.9: Anemia, unspecified) plan EGD and colonoscopy under anesthesia for further evaluation, informed consent obtained. Follow-up No qualifying data available Problem List/Past Medical History Ongoing Anemia Anxiety BMI 26.0-26.9,adult Chronic rhinitis History of varicocele Hypothyroidism Overweight Historical No qualifying data Procedure/Surgical History Laryngoscopy, flexible; diagnostic (08/01/2021), Bx with primary closure left uppwer lip mucosa. (09/24/2016), Nasal septoplasty, Tonsillectomy and adenoidectomy. Medications Cytomel 25 mcg Tab, 25 mcg= 1 tab(s), Oral, Daily diclofenac sodium 75 mg Oral EC Tab, 75 mg= 1 tab(s), Oral, BID levothyroxine 112 mcg (0.112 mg) Tab Allergies Keflex (Rash) Social History Alcohol Current. Beer. 1-2 times per week., 02/01/2025 Substance Abuse Never., 02/01/2025 Tobacco Never (less than 100 in lifetime) Tobacco Use:. Never Smokeless Tobacco Use:., 02/06/2025 Family History Brain tumor: Brother. Heart disease: Father. Primary malignant neoplasm of prostate: Father. screening for malignant neoplasm of colon. [facility] Comment on above: Result Comment: Elec tronically Signed By: Richard TURNER MD\.br\Date and Time Signed: 03/27/25 11:14 EDT 03-04-2025 Note Progress Note-Physic gladis Patient: DONNY DIEGO Age: 64 years Sex: Male : 1960 Associated Diagnoses: None Author: Masood Arango MD Postoperative Information Postoperative disposition: Postoperative disposition: To PACU. Optimetrix number: Optimetrix number [id number]. Anesthetic utilized: General. Health Status Allergies: Allergic Reactions (Selected) Severity Not Documented Keflex- Rash. Physical Examination VS/Measurements Pain Assessment: Controlled. General: Awake, Appropriate. Respiratory: Adequate air exchange. Cardiovascular: Stable. Neurological Assessment Anesthetic outcome No anesthetic complications noted. Adequate pain relief. Review / Management Condition: Stable. Plan Transfer/Discharge: Transfer/Discharge Discharge when meets criteria ( To home ). [facility] Comment on above: Result Comment: Elec tronically Signed By: Masood Arango MD\.br\Date and Time Signed: 03/04/25 12:14 EDT 03-02-2025 Evaluation + Plan note Extrac adriel from: Title:ANES Pre-operative Note 2022 Author:Masood Stephen Date:03/02/25 Plan [place] [employer] (ASA) physical status classification: Class II. Anesthetic Preoperative Plan: Anesthesia General. Future Appointments Appointment Date:03/08/2025 10:00:00 AM Scheduled Provider: Location:FT.XRAY Appointment Type:XR Esophagus/Upper GI/Small Bowel (FT) Future Scheduled Tests Radiology* XR Upper GI Double Contrast 03/08/25 [facility] 04-04-2025 NoteColonoscopy Procedure Report Patient: DONNY DIEGO Age: 64 years Sex: Male : 1960 Associated Diagnoses: None Author: Richard TURNER MD Pre-Procedure Procedure Date 03/02/2025 08:20:00 . Procedure Type: Colonoscopy. Procedure provider Richard Turner MD. Referred by Liz Wiley MD. Current history and physical Documented on chart. Colorectal neoplasm risk assessment Average risk. Informed Consent After discussing the rationale, risks and benefits, and alternatives to this procedure, the patient provided signed consent for the procedure. Pre-procedure diagnosis: Screening. Iron deficiency anemia, unexplained. ASA Classification: Class II. . Monitoring: See anesthesia record. . Procedure The procedure was performed in the hospital. Rectal exam was performed and was normal. The patient was positioned starting in the left lateral decubitus position. Endoscope type used was an adult-size. The endoscope was lubricated then introduced through the anus. The scope was advanced to the cecum verified by photographing the appendiceal orifice, verified by photographing the ileocecal valve. No difficulties encountered during the procedure. The bowel preparation quality was good and was adequate (see polyps greater than or equal to 6 millimeters). The patient tolerated the procedure well. Images Procedure images: anal canal [id number] ileocecal valve appendiceal orifice . Post-Procedure Complications: none. Estimated blood loss: none. Specimens: none. Devices/ implants: none left in place. Impression and Plan Diagnosis: Anemia ([id number]-EC D64.9, Discharge, Medical). Course: Progressing as expected. Recommendations: Repeat colonoscopy:: In 10 years. Follow-up:: if problems/questions. Diet:: Regular diet. Medication resumption:: Continue current medications. Return to activities:: After 24 hours. Education and Follow-up: Counseled: [facility]Other Comment: Missing Attachment - attachment storage system not supported [id number] Can be viewed in source systemMissing Attachment - attachment storage system not supported [id number] Can be viewed insource systemMissing Attachment - attachment storage system not supported [id number] Can be viewed in [facility] systemMissing Attachment - attachment storage system not supported [id number] Can be viewed in source [id number] Hospital Discharge instructions Patient Education 03/02/2025 08:31:13 Endoscopy, Care After Procedure [place] [facility] Endoscopy Care After Procedure Please read the instructions outlined below and refer to this sheet in the next few weeks. These discharge instructions provide you with general information on [facility] Your [facility] may also give you specific instructions. While your treatment has been planned according to the most current medical practices available, unavoidable complications occasionally occur. If you have any problems or questions after discharge, please call your doctor. ACTIVITY You may resume your regular activity but move at a slower pace for the next 24 hours. Take frequent rest periods for the next 24 hours. Walking will help expel (get rid of) the air and reduce the bloated feeling in your abdomen. No driving for 24 hours (because of the anesthesia (medicine) used during the test). You may shower. Do not sign any important legal documents or operate any machinery for 24 hours (because of the anesthesia used during the test). NUTRITION Drink plenty of fluids. You may resume your normal diet. Begin with a light meal and progress to your normal diet. Avoid alcoholic beverages for 24 hours or as instructed by your caregiver. MEDICATIONS You may resume your normal medications unless your caregiver tells you otherwise. WHAT YOU CAN EXPECT TODAY You may experience abdominal discomfort such as a feeling of fullness or gas pains. FOLLOW-UP Your doctor will discuss the results of your test with you. SEEK IMMEDIATE MEDICAL ATTENTION IF ANY OF THE FOLLOWING OCCUR: Excessive nausea (feeling sick to your stomach) and/or vomiting. Severe abdominal pain and distention (swelling). Trouble swallowing. Temperature over 100 F (37.8 C). Rectal bleeding or vomiting of blood. Document Released: 06/29/2005 Document Re-Released: 05/09/2007 ExitCare Patient Information 2010 [employer]. 03/02/2025 08:31:09 Colonoscopy, Care After Surgery [place] ([facility]) Colonoscopy Care After Surgery Please read the instructions outlined below and refer to this sheet in the next few weeks. These discharge instructions provide you with general information on caring for [facility] Your doctor may also give you specific instructions. While your treatment has been planned according to the most current medical practices available, unavoidable complications occasionally occur. If you have any problems or questions after discharge, please call your doctor. ACTIVITY You may resume your regular activity, but move at a slower pace for the next 24 hours. Take frequent rest periods for the next 24 hours. Walking will help get rid of the air and reduce the bloated feeling in your abdomen (belly). No driving for 24 hours (because of the anesthesia (medicine) used during the test). You may shower. Do not sign any important legal documents or operate any machinery for 24 hours (because of the anesthesia used during the test). NUTRITION Drink plenty of fluids. You may resume your normal diet as instructed by your doctor. Begin with a light meal and progress to your normal diet. Heavy or fried foods are harder to digestand may make you feel nauseated (sick to your stomach). Avoid alcoholic beverages for 24 hours or as instructed. MEDICATIONS You may resume your normal medications unless your doctor tells you otherwise. WHAT YOU CAN EXPECT TODAY Some feelings of bloating in the abdomen. Passage of more gas than usual. Spotting of blood in your stool or on the toilet paper. FOLLOW-UP Your doctor will discuss the results of your test with you. SEEK IMMEDIATE MEDICAL ATTENTION IF: There is more than a spotting of blood in your stool. There is abdominal distention (your abdomen is swollen). There is vomiting. You have a temperature over 101.5 F. There is abdominal pain or discomfort that is severe or gets worse throughout the day. Follow Up Care 02/06/2025 08:52:59 With:Richard TURNER Address: [facility] [place], [address] [address]- Business (1) When: only if needed [facility] 04-04-2025 NotePatient Education - Text Endoscopy Care After Procedure Please read the instructions outlined below and refer to this sheet in the next few weeks. These discharge instructions provide you with general information on caring for yourself after you leave [facility]. Your doctor may also give you specific instructions. While your treatment has been planned according to the most current medical practices available, unavoidable complications occasionally occur. If you have any problems or questions after discharge, please call your doctor. ACTIVITY ??? You may resume your regular activity but move at a slower pace for the next 24 hours. ??? Take frequent rest periods for the next 24 hours. ??? Walking will help expel (get rid of) the air and reduce the bloated feeling in your abdomen. ??? No driving for 24 hours (because of the anesthesia (medicine) used during the test). ??? You may shower. ??? Do not sign any important legal documents or operate any machinery for 24 hours (because of theanesthesia used during the test). NUTRITION ??? Drink plenty of fluids. ??? You may resume your normal diet. ??? Begin with a light meal and progress to your normal diet. ??? Avoid alcoholic beverages for 24 hours or as instructed by your caregiver. MEDICATIONS ??? You may resume your normal medications unless your caregiver tells you otherwise. WHAT YOU CAN EXPECT TODAY ??? You may experience abdominal discomfort such as a feeling of fullness or ???gas??? pains. FOLLOW-UP ??? Your doctor will discuss the results of your test with you. seek immediate medical attention if any of the following occur: ??? Excessive nausea (feeling sick to your stomach) and/or vomiting. ??? Severe abdominal pain and distention (swelling). ??? Trouble swallowing. ??? Temperature over 100 F (37.8??? C). ??? Rectal bleeding or vomiting of blood. Document Released: 06/29/2005 Document Re-Released: 05/09/2007 ExitCare??? Patient Information ???2009 [employer]. Colonoscopy Care After Surgery Please read the instructions outlined below and refer to this sheet in the next few weeks. These discharge instructions provide you with general information on caring for yourself after you leave [facility]. Your doctor may also give you specific instructions. While your treatment has been planned according to the most current medical practices available, unavoidable complications occasionally occur. If you have any problems or questions after discharge, please call your doctor. ACTIVITY You may resume your regular activity, but move at a slower pace for the next 24 hours. Take frequent rest periods for the next 24 hours. Walking will help get rid of the air and reduce the bloated feeling in your abdomen (belly). No driving for 24 hours (because of the anesthesia (medicine) used during the test). You may shower. Do not sign any important legal documents or operate any machinery for 24 hours (because of the anesthesia used during the test). NUTRITION Drink plenty of fluids. You may resume your normal diet as instructed by your doctor. Begin with a light meal and progress to your normal diet. Heavy or fried foods are harder to digestand may make you feel nauseated (sick to your stomach). Avoid alcoholic beverages for 24 hours or as instructed. MEDICATIONS You may resume your normal medications unless your doctor tells you otherwise. WHAT YOU CAN EXPECT TODAY Some feelings of bloating in the abdomen. Passage of more gas than usual. Spotting of blood in your stool or on the toilet paper. FOLLOW-UP Your doctor will discuss the results of your test with you. SEEK IMMEDIATE MEDICAL ATTENTION IF: There is more than a spotting of blood in your stool. There is abdominal distention (your abdomen is swollen). There is vomiting. You have a temperature over 101.5 F. There is abdominal pain or discomfort that is severe or gets worse throughout the day.[facility] NoteProgress Note-Physician Patient: DONNY DIEGO Age: 64 years Sex: Male : 1960 Associated Diagnoses: None Author: Nba PERKINS, Masood Benton Preoperative Information Anesthesia Preop Info: Time patient last ate or drank 03/02/2025 00:00:00. Anesthesia history: Patient history: None. Family history+: None. Informed consent: Signed by patient. Re-evaluation prior to induction: Initial evaluation reviewed: No significant change. Review of Systems Eye Ear/Nose/Mouth/Throat Respiratory: No shortness of breath, No cough. Cardiovascular: Negative, No chest pain. Gastrointestinal: No heartburn. Musculoskeletal Neurologic Health Status Allergies: Allergic Reactions (Selected) Severity Not Documented Keflex- Rash., Allergies (1) Active Severity Reaction Keflex Rash Current medications: (Selected) Inpatient Medications Ordered Sodium Chloride 0.9% IV Jessica 1000 mL 1,000 mL: 1,000 mL, IV, 20 mL/hr, Routine, Start date 03/02/25 6:38:00 EDT, 50 hour(s), Total volume (mL): 1,000, 91.3 kg, 2.17, m2 Documented Medications Documented Cytomel 25 mcg Tab: 25 mcg = 1 tab(s), Oral, Daily, Refills(s) 0, Thyroid diclofenac sodium 75 mg Oral EC Tab: 75 mg = 1 tab(s), Oral, Daily, Refills(s) 0, Inflammation levothyroxine 112 mcg (0.112 mg) Tab: 112 mcg = 1 tab(s), Oral, Daily, Refills(s) 0, Thyroid, Home Medications (3) Active Cytomel 25 mcg Tab 25 mcg = 1 tab(s), Oral, Daily diclofenac sodium 75 mg Oral EC Tab 75 mg = 1 tab(s), Oral, Daily levothyroxine 112 mcg (0.112 mg) Tab 112 mcg = 1 tab(s), Oral, Daily , Medications (1) Active Scheduled: (0) Continuous: (1) Sodium Chloride 0.9% 1,000 mL 1,000 mL, IV, 20 mL/hr PRN: (0) Problem list: All Problems Anemia / SNOMED CT 023651646 / Confirmed Anxiety / SNOMED CT 85564810 / Confirmed BMI 26.0-26.9,adult / SNOMED CT 9700468202 / Confirmed Chronic rhinitis / SNOMED CT 335051694 / Confirmed History of varicocele / SNOMED CT 580471763 / Confirmed Hypothyroidism / SNOMED CT 45601525 / Confirmed Overweight / SNOMED CT 541017561 / Confirmed, Active Problems (7) Anemia Anxiety BMI 26.0-26.9,adult Chronic rhinitis History of varicocele Hypothyroidism Overweight Histories Past Medical History: No active or resolved past medical history items have been selected or recorded. Family History: Heart disease Father Brain tumor Brother Primary malignant neoplasm of prostate Father Procedure history: Laryngoscopy, flexible fiberoptic; diagnostic (77522) on 08/01/2021 at 60 Years. Bx with primary closure left uppwer lip mucosa. on 09/24/2016 at 56 Years. Nasal septoplasty ([id number]). Tonsillectomy and adenoidectomy ([id number]). Social History Social & Psychosocial Habits Tobacco 02/06/2025 Tobacco Use: Never (less than 100 in l Smokeless tobacco use: Never . Physical Examination Vital Signs 03/02/2025 7:07 EDT Temperature Temporal Artery 36.7 DegC Heart Rate Monitored 79 bpm Respiratory Rate Monitored 16 br/min Systolic Blood Pressure 138 mmHg Diastolic Blood Pressure 82 mmHg Blood Pressure Location Left arm SpO2 98 % Vital Signs (last 24 hrs) Last Charted Temp Temporal 36.7 DegC (MAR 02 07:07) Heart Rate Monitored 79 bpm (MAR 02 07:07) Resp Rate 16 br/min (MAR 02 07:07) SBP 138 mmHg (MAR 02 07:07) DBP 82 mmHg (MAR 02 07:07) Weight 91.3 kg (MAR 02 07:11) BMI 26.68 (MAR 02 07:11) Measurements from flowsheet : Measurements 03/02/2025 7:11 EDT Height/Length Measured 185 cm Height/Length Dosing 185.0 cm Weight Dosing 91.3 kg BSA Measured 2.17 m2 Body Mass Index Measured 26.68 kg/m2 Weight Measured 91.3 kg Airway: Mallampati classification: II (soft palate, fauces, uvula visible). Respiratory: Lungs are clear to auscultation, Respirations are non-labored, adequate air exchange. Cardiovascular: Regular rhythm, No murmur. Review / Management Results review: No qualifying data available . Plan [place] [employer] (ASA) physical status classification: Class II. Anesthetic Preoperative Plan: Anesthesia General.[facility] Comment on above:Result Comment: Electronically Signed By: Nba PERKINS, Masood Benton\.br\Date and Time Signed: 03/02/25 08:12 [id number] NoteHistory and Physical Patient: DONNY DIEGO Age: 64 years Sex: Male : 1960 Associated Diagnoses: None Author: REBECCA PERKINS, Richard R Subjective no changes to [facility]Comment on [facility]:Result Comment: Electronically Signed By: REBECCA PERKINS, Richard Bailey\Date and Time Signed: 03/02/25 07:34 EDTHospital course Narrative No data available for this section [facility] Hospital Discharge instructions No data available for this section [facility] Progress note No data available for this section [facility] Summary Purpose Family History No Family History Records Found No data available for this section No data available for this section No Family History Records Found Advance Directives No Advanced Directives Records FoundNo Advanced Directives Records Found Additional Source Comments (unrecognized sect ion and content) No Status Records FoundNo Status Records Found INFORMATION SOURCE (unrecogn ized section and content) DATE CREATED AUTHOR 02/22/2023 [facility] DATE CREATED AUTHOR AUTHOR'S ORGANIZ ATION 03/28/2025 [facility] Patient Care team informatio n (unrecognized section and content) Personnel Name: Liz Wiley MD Address: [address] [place] [address] Telecom: Personnel Name: Liz Wiley MD Address: [address] [place] [address] Telecom: FOR RECORDS PERTAINING TO PATIENTS WHO ARE [...] BE BASED ON THE PRIMARY CLINICAL RECORDS. [facility]. provides no warranty or guarantee of the accuracy or completeness of information in this document.
[2025-04-07 09:17] LABS: Free T3 3.42 pg/mL (2.18-3.98); Thyroid Stimulating Hormone <0.007 uIU/mL (0.358-3.740)
[2025-04-07 09:39] LABS: Prostate Specific Antigen Scrn 3.83 ng/mL (<=4.00)
== END 2025-04-07 08:22 | disposition home or self-care (01) ==
LOC: LAB 08:22
PROVIDERS: PCP Family Medicine; Visit Provider Family Medicine
DX: E03.9 Hypothyroidism, unspecified (principal)
CPT/HCPCS: 36415; 84436; 84443; 84481; G0103

== ENCOUNTER 2025-11-06 08:53 | Outpatient (OUT) | payer BC, SELFPAY ==
[2025-11-06 09:27] LABS: Hematocrit 35.9 % (42.0-54.0); Hemoglobin 11.3 g/dL (14.0-18.0); Immature Granulocytes Abs Auto 0.01 10^3/uL (0.00-0.03); Immature Granulocytes Pct Auto 0.1 % (0.0-0.5); Lymphocytes Absolute Auto 1.3 10^3/uL (1.2-3.8); Mean Corpuscular HGB Conc 31.5 g/dL (29.9-35.2); Mean Corpuscular Hemoglobin 27.2 pg (25.9-34.0); Mean Corpuscular Volume 86.5 fL (80.0-94.0); Platelet Count 413 10^3/uL (150-450); Red Blood Count 4.15 10^6/uL (4.70-6.10); White Blood Count 7.0 10^3/uL (4.0-11.0)
[2025-11-06 10:07] LABS: Alanine Aminotransferase 16 U/L (16-63); Albumin Globulin Ratio 0.7; Albumin Level 3.2 g/dL (3.4-5.0); Alkaline Phosphatase 172 U/L (46-116); Anion Gap 14.1; Aspartate Amino Transferase 9 U/L (15-37); Blood Urea Nitrogen 18.0 mg/dL (7.0-18.0); Calcium 9.9 mg/dL (8.5-10.1); Carbon Dioxide 28.6 mmol/L (21.0-32.0); Chloride 101 mmol/L (98-107); Estimated GFR (African America >60 (>=60 mL/min/1.73m^2); Estimated GFR (Non-African Ame 53 (>=60 mL/min/1.73m^2); Free T3 2.88 pg/mL (2.18-3.98); Globulin 4.9 g/dL; Glucose 96 mg/dL (74-106); NT Pro B Type Natriuretic Pept 257.0 pg/mL (<=900.0); Potassium 4.7 mmol/L (3.5-5.1); Sodium 139 mmol/L (136-145); Thyroid Stimulating Hormone <0.007 uIU/mL (0.358-3.740); Total Protein 8.1 g/dL (6.4-8.2)
== END 2025-11-06 08:54 | disposition home or self-care (01) ==
LOC: LAB 08:56
PROVIDERS: PCP Family Medicine; Visit Provider Family Medicine
DX: K52.9 Noninfective gastroenteritis and colitis, unspecified (principal); G43.909 Migraine, unspecified, not intractable, without status migrainosus; R06.00 Dyspnea, unspecified; I11.0 Hypertensive heart disease with heart failure; I50.30 Unspecified diastolic (congestive) heart failure
CPT/HCPCS: 36415; 80053; 83880; 84436; 84443; 84481; 85025

== ENCOUNTER 2025-11-09 14:22 | Outpatient (REF) | payer BC, SELFPAY ==
--- OUTSIDE RECORDS SUMMARY | 2025-11-09 14:27 | XMS_ITS | CCD ---
Author Organization [facility] Care Team Providers Care Demand Planning Manager Name Role Phone JUDI ., DR HILL [...] HILL Attending Unavailable SvenyLiz Primary Care Physician [phone] Terry TURNER Attending Unavailable NILL, Terry R Admitting Unavailable NILL, Terry Montes Referring Unavailable MARTYMaricruz Attending Unavailable Liz Wiley Referring Unavailable NILL, Terry R Attending Unavailable NILL, Terry R Admitting Unavailable NILL, Terry R Referring Unavailable NILL, Terry R Attending Unavailable Allergies Allergy ClassificationReported Allergen(s)Allergy TypeDate of OnsetReaction(s) Facility (3 sources)Cephalexin; Translations: [Keflex]Drug Golztnp70-56-7652Vsx [facility] Repository (2 sources)Cephalexin; Translations: [cephalexin]Drug AllergyEruption of skin (disorder)[facility] General Surgery [place] Medications Current Medications MedicationDrug Class(es)DatesSig (Normalized)Sig (Original)diclofenac sodium 75 mg delayed release oral tablet (2 sources)Nonsteroidal Anti-inflammatory DrugStart: 48-90-8213wrnu 1 tablet by mouth once dailydiclofenac sodium 75 mg Oral EC Tab 75 mg = 1 tab(s), Oral, Daily, Refills(s) 0, Inflammation StartDate: 01/05/25 Status: Ordered Repeat number: 1levothyroxine sodium 0.112 mg oral tablet (2 sources)l-ThyroxineStart: 45-24-9630fkxj 1 tablet by mouth once daily levothyroxine 112 mcg (0.112 mg) Tab 112 mcg = 1 tab(s), Oral, Daily, Refills(s) 0, Thyroid Start Date: 02/06/25 Status: Ordered Repeat number: 1liothyronine sodium 0.025 mg oral tablet (2 sources)l-TriiodothyronineStart: 25-84-9313igar 1 tablet by mouth once daily Cytomel 25 mcg Tab 25 mcg = 1 tab(s), Oral, Daily, Refills(s) 0, Thyroid Start Date: 01/05/25 Status:Ordered Repeat number: 1 Problems Problem ClassificationProblemDateDocumented DateEpisodic/ChronicAnxiety disorders (2 sources)Hpmlxen16-64-2469SrjsbohIosrvusqvu and other anemia (3 sources)Anemia; Translations: [Anemia, unspecified]Onset: 97-42-2008Bgdyqztd Other gastrointestinal disorders (2 sources)Gastrointestinal tract -71-6081NviwnprvFoppk male genital disorders (2 sources)H/O: male genital mwetaxlz16-83-2653PynowmieQxzlt nutritional; endocrine; and metabolic disorders (2 sources)Ebzezvnqkm59-87-9669DzfomnxhCzlkl nutritional; endocrine; and metabolic disorders (2 sources)Overweight in adulthood with body mass index of 25 or more but less than 5629-66-2624TxlcvrzoBafkj screening for suspected conditions (not mental disorders or infectious disease) (2 sources)Encounter for screening for malignant neoplasm of prostate; Translations: [Elevated prostate specific antigen [PSA]]Onset: 02-20-2023 EpisodicOther upper respiratory disease (2 sources)Chronic bneztokq12-95-3705AegurylJolnaxa disorders (2 sources)Vcnfnuxtwbdczl13-82-7214Mxqdtut Results Test NameValueInterpretationReference RangeFacilityXR Upper GI Single Contraston [id number] Upper GI Single ContrastExam Date/Time: 03/08/2025 10:33 EDT Reason for Exam: [...] 13.4 DAP = 664.61 (\XB5\Gy*m\XB2\) Ordering Provider: Terry TURNER FINAL REPORT Dictated: 03/08/2025 4:53 pm Abdirizak Delgado MD Signed (Electronic Signature): 03/08/2025 4:53 pm Signed by: Abdirizak Delgado MD Transcribed by: CORIN Technologist: [facility] Intraoperative Recordon [id number] OR Intraoperative RecordMain OR Intraoperative Record IntraOp Document Type FT Summary Primary Physician: Terry TURNER MD Finalized Date/Time: 03/05/25 14:52:17 Pt. Name: DONNY DIEGO Brian Quiros/Sex: 1960 Male Med Rec #: [id number] Physician: Terry TURNER MD Financial #: [id number] Pt. Type: O Room/Bed: / Admit/Disch: 03/02/25 06:49:30 - 03/03/25 23:59:59 Institution: Case Times FT Entry 1 Patient Times In Room 03/02/25 07:52:00 Out Room 03/02/25 08:22:00 Procedure Times Start 03/02/25 07:55:00 Stop 03/02/25 08:21:00 Anesthesia Times Start 03/02/25 07:52:00 Stop 03/02/25 08:22:00 Time at [facility] 03/02/25 08:13:00 Last Modified By: Katelynn Ledezma RN 03/02/25 08:22:36 General Comments: 0804 EGD completed. /,RN 0807 Colonoscopy started. /,RN Case Attendance FT Entry 1 Entry 2 Entry 3 Case Attendee Isma Snider CRNA, MD, Michael R Dendinger RN, Katelynn Rowland Role Performed TALENT ACQUISITION ASSISTANT Surgeon - Primary Inside Sales Account Manager - Primary Time In 03/02/25 07:52:00 03/02/25 [...] Time Out Isma Snider CRNA, Given Participants REBECCA PERKINS, Brisa Shaw RN, Tammy Sanchez Micala E Time Out [...] EGD. Colonoscopy Primary Procedure Yes Primary Surgeon Terry TURNER MD 03/02/25 07:55:00 Stop 03/02/25 08:21:00 Anesthesia Type [...] and tissue Entry 1 Skin Integrity Intact, [place], Warm, & Skin Abnormality No Dry Outcomes [...] Side Left Leg Position (more content not included)...[facility] 77-35-3341Jnoclyhie Reminders From: Sherita Ronquillo LPN To: GSN - Clinical; Sent: 03/05/2025 11:06:07 EDT Show up: 01/30/2035 07:00:00 EST Subject: colonoscopy recall Due Date/Time: 03/02/2035 07:00:00 EDT Reminder/Recall Patient due for screening colonoscopy 03/02/2035.[facility] DaytonDischarge Instructionson 71-65-3354Gjlajutet InstructionsDischarge Instructions DONNY DIEGO :1960 Visit Date:03/02/2025 Inpatient Discharge Instructions Your Care Team Admitting Physician - Terry TURNER MD Referring Physician - Terry TURNER MD Reason for Your Visit ANEMIA Your Diagnosis [...] Up Appointments after Discharge Follow Up with Terry TURNER When: Only if needed Where: [address] [place], [place] [address]dict [place], [address] [address]- Business (1) Medications What How Much When Instructions [...] on caring for yourself after you leave [facility]. Your doctor may also give you [...] Document Re-Released: 05/09/2007 ExitCare??? Patient Information ???2009 [employer]. Colonoscopy Care After Surgery Please read the instructions outlined below and refer to this sheet in the next few weeks. These discharge instructions provide you with general information on caring for [facility] Your doctor may also give you specific [...] for 24 hours (becau (more content not included)...[facility] DaytonComment on above:Result Comment: Electronically Signed By: Simeon CHOE, Malathi Mancilla\.br\Date and Time Signed: 03/02/25 08:32 EDTEGDon 03-02-2025 EsophagogastroduodenoscopyEGD Patient: DONNY DIEGO Age: 64 years Sex: Male : 1960 Associated Diagnoses: None Author: Terry TURNER MD Pre-Procedure Procedure Date 03/02/2025 08:20:00 . Procedure Type: Esophagogastroduodenoscopy. Procedure provider Terry Turner MD. Referred by Liz Wiley MD. Current history and physical Documented on chart. Pre-procedure diagnosis: Diagnostic: iron deficiency anemia. ASA Classification: Class II. . Monitoring: See anesthesia record. . Procedure The procedure was performed in the hospital. See anesthesia record for sedation given during procedure. The patient was positioned starting in the left lateral decubitus position. Endoscope type usedwas an adult-size, introduced orally, advanced to the body of the stomach, stomach: tortuous distalstomach, unable to advance to antrum/pylorus/duodenum; possible paraesophageal [...] place. Impression and Plan EGD: Diagnosis: Anemia (VXX76-FX D64.9, Discharge, Medical), Anemia (JXV10-GV D64.9, Discharge, Medical). Course: Progressing as expected. Education and Follow-up: Counseled: Family.[facility] Inpatient Patient Summaryon 57-55-4646Tjiayqjkz Patient SummaryInpatient Patient Summary [address] [address] [facility] [place] [facility] Clinical Discharge Instructions PERSON INFORMATION Name: DONNY DIEGO PHYSICIANS Admitting Physician: Terry TURNER MD Attending Physician: Terry TURNER MD PCP: Liz Wiley MD Discharge Diagnosis: Anemia Comment: PATIENT EDUCATION INFORMATION Instructions: Medication Leaflets: Follow up: With: Address: When: Terry TURNER [address] [place] [address], [address], [address] [address] Business (1) , only if needed MEDICATION LIST Medications to Continue with No Changes Other Medications diclofenac (diclofenac sodium 75 mg Oral EC Tab) 1 Tablets By Mouth every day. levothyroxine (levothyroxine 112 mcg (0.112 mg) Tab) 1 Tablets By Mouth every day., Responsible Provider: LIZ WILEY liothyronine (Cytomel 25 mcg Tab) 1 Tablets By Mouth every day. Comment:[facility] DaytonMain OR PACU II Recordon [id number] OR PACU II RecordMain OR PACU II Record PACU Phase II Document Type FT Summary Primary Physician: Terry TURNER MD Finalized Date/Time: 03/02/25 09:22:48 Pt. Name: DONNY DIEGO /Sex: 1960 Male Med Rec #: [id number] Physician: Terry TURNER MD Financial #: [id number] Pt. Type: O Room/Bed: / Admit/Disch: 03/02/25 [...] and monitors body temperature Evaluates postoperative respiratory statusEvaluates postoperative cardiac status Evaluates postoperative neurological status [...] individualized perioperative plan of care The patient's rightto privacy is maintained The patient's value system, [...] with or improved from baseline levels established preoperativelyThe patient's cardiovascular status is consistent with or improved from baseline levels established preoperatively The patient's neurological status is consistent with or improved from baseline levels established preoperatively The patient demonstrates and/or reports adequate pain control throughout the perioperative period The patient received appropriate medication(s), safely administered during the perioperativeperiod Finalized By: Malathi Hendrix RN Document Signatures Signed By: Malathi Hendrix RN 03/02/25 09:22[facility] DaytonMain OR Preoperative Recordon [id number] OR Preoperative RecordMain OR Preoperative Record Holding Area Document Type FT Summary Primary Physician: Terry TURNER MD Finalized Date/Time: 03/02/25 07:10:07 Pt. Name: DONNY DIEGO Brian KumarB./Sex: 1960 Male Med Rec #: [id number] Physician: Terry TURNER MD Financial #: [id number] Pt. Type: O Room/Bed: / Admit/Disch: 03/02/25 [...] or her perioperative plan of care The patient'sright to privacy is maintained Surgery Checklist FT [...] Signatures Signed By: Nkechi Le RN 03/02/25 07:10NoChildren[facility] ColumbusOutpatient Surgery Discharge Instructionon 40-85-5123Xcikocrdla Surgery Discharge InstructionOutpatient Surgery Discharge Instruction [place] [id number] Patient Discharge Instructions PERSON INFORMATION Name: DONNY DIEGO Date of : 1960 Current Date: 03/02/2025 08:26:15 PHYSICIANS Admitting Physician: Terry TURNER MD Discharge Diagnosis: Anemia DONNY DIEGO [...] bleeding, Temperature above 101.5 degrees, Severe pain atthe operative site, Persistent vomiting IF UNABLE TO CONTACT YOUR PHYSICIAN AND YOU FEEL IT IS AN EMERGENCY, GO TO THE NEAREST EMERGENCY ROOM OR CALL 911 JOHNATHON Doty DANNY L, have received the attached patient education materials/instructions and have verbalized understanding: May we do a follow up call? Yes No I was present when discharge instructions were given Patient Signature Date Clinican/Nurse Signature Date Follow up: With: Address: When: Terry Torres, [address], [address] [address] Business (1) , only if needed Pharmacy Information: You may receive a survey from [employer] asking you to rate your care experience. Your feedback is important and will help us understand what we do well and how we can improve the quality of care we provide to you, your loved ones and our community. It???s an honor to serve you. Thank you for choosing [facility] HERE ARE THE MEDICATION CHANGES THAT [...] every day. PATIENT EDUCATION INFORMATION Instructions: Medication Leaflets:[facility] DaytonAmbulatory Visit Summaryon 29-09-3105Vyxgwoukkn Visit SummaryAmbulatory Visit Summary DONNY DIEGO :1960 Visit Date:02/06/2025 Ambulatory Visit Instructions Your Diagnosis Anemia Your Care Team Attending Physician - Terry TURNER MD Primary Care Physician - Liz [...] Tablets By Mouth 2 times a day Contactprescribing physician if questions or concerns Unchanged levothyroxine (levothyroxine 112 mcg (0.112 mg) Tab) 90 EA, 0 Refill(s), TAKE 1 TABLET BYMOUTH EVERY DAY FOR 30 DAYS Contact prescribing [...] you for choosing us for your care. [facility] DaytonPSA, FREE AND TOTAL RATIOon 02-19-2023% Free PSA22.3 %NormalThe [facility] on above:Result Comment: The table below lists the probability [...] free PSA for any other population of men.Performed By: #### PSAFREE #### [facility] [address] [place] [address] Dr. Rafael Thrasher specific Ag [Mass/Vol]3.5 ng/mLNormal0.0-4.0The [facility] on above:Result Comment: Mitchel ECLIA methodology. . According to the [place] [employer], Serum PSA should decrease and [...] of the presence or absence of malignant disease.Performed By: #### PSAFREE #### [facility] [address] [place] [address] Dr. Rafael Fernandez, Free0.78 ng/mLNormalN/AThe [facility] on above:Result Comment: Mitchel ECLIA methodology.Performed By: #### PSAFREE #### [facility] [address] [place] [address] Dr. Rafael LeiC AUTO DIFFon [id number] #0.0 103/ulNormal0.0-0.1The [facility] HospitalComment on above:Performed By: #### CBC #### [facility] [address] [place] [address] Dr. Rafael BarraganBasophils/100 WBC (Bld)0.7 %Normal0.2-2.0The [facility] Comment on above:Performed By: #### CBC #### [facility] [address] [address] [address] Rafael Parra #0.2 103/ulNormal0.0-0.7The [facility] HospitalComment on above: Performed By: #### CBC #### [facility] [address] [place] [address] Dr. Rafael Yatesosinophils/100 WBC (Bld)2.6 %Normal0.9-7.0The [facility] Comment on above:Performed By: #### CBC #### [facility] [address] [place] [address] Dr. Rafael Yatesrythrocyte distribution width (RBC) [Ratio]14.3 %Nvqriu25.0-15.0 The [facility] HospitalComment on above:Performed By: #### CBC #### [facility] [address] [place] [address] Dr. Rafael BarraganHematocrit (Bld) [Volume fraction]39.7 %Critically low42.0-54.0 The [facility] HospitalComment on above:Performed By: #### CBC #### [facility] [address] [place] [address] Dr. Rafael BarraganHemoglobin (Bld) [Mass/Vol]12.8 g/dLCritically low14.0-18.0The [facility] HospitalComment on above:Performed By: #### CBC #### [facility] [address] [place] [address] Dr. Rafael Ortiz #0.02 10e3/ulNormal0.00-0.03The [facility] HospitalComment on above:Performed By: #### CBC #### [facility] [address] [address] [address] Rafael Ortiz %0.3 %Normal0.0-0.5The [facility] on above: Performed By: #### CBC #### [facility] [address] [place] [address] Dr. Rafael Perez #1.7 103/ulNormal1.2-3.8The [facility] HospitalComasc[facility] on above:Performed By: #### CBC #### [facility] [address] [place] [address] Dr. Rafael Dinhhocytes/100 WBC (Bld)27.6 %Stnntk72.5-60.0The [facility] on above:Performed By: #### CBC #### [facility] [address] [place] [address] Dr. Rafael CastanoUAL DIFF REQNONormalThe [facility] HospitalComment on above: Performed By: #### CBC #### [facility] [address] [place] [address] Dr. Rafael Peña (RBC) [Entitic mass]28.5 blXcspah25.9-34.0The [facility] on above:Performed By: #### CBC #### [facility] [address] [place] [address] Dr. Rafael Peña (RBC) [Mass/Vol]32.2 g/wPHxctqp86.9-35.2The [facility] on above:Performed By: #### CBC #### [facility] [address] [place] [address] Dr. Rafael Peña (RBC) [Entitic vol]88.4 aRFpggow73.0-94.0The [facility] on above:Performed By: #### CBC #### [facility] [address] [place] [address] Dr. Rafael Tomlin #0.5 103/ulNormal0.3-0.8The [facility] on above:Performed By: #### CBC #### [facility] [address] [address] [address] Rafael Ryanocytes/100 WBC (Bld)8.6 %Normal1.7-12.0The [facility] Comment on above:Performed By: #### CBC #### [facility] [address] [address] [address] Rafael AllenUT #3.6 103/ulNormal1.4-6.5The [facility] HospitalComment on above:Performed By: #### CBC #### [facility] [address] [place] [address] Dr. Rafael Allenutrophils/100 WBC (Bld)60.2 %Exwkjr96.0-75.0The [facility] HospitalComment on above:Performed By: #### CBC #### [facility] [address] [place] [address] Dr. Rafael BarraganPlatelet mean volume (Bld) [Entitic vol]9.3 fLCritically low 9.5-13.5The [facility] HospitalComment on above:Performed By: #### CBC #### [facility] [address] [place] [address] Dr. Rafael BarraganPLT351 103/etQnzcia963-845Rmh [facility] HospitalComment on above: Performed By: #### CBC #### [facility] [address] [place] [address] Dr. Rafael BarraganRBC4.49 106/ulCritically low4.70-6.10The [facility] HospitalComment on above:Performed By: #### CBC #### [facility] [address] [place] [address] Dr. Rafael BarraganWBC6.0 103/ulNormal4.0-11.0The [facility] HospitalComment on above: Performed By: #### CBC #### [facility] [address] [place] [address] Dr. Rafael Leger THYROXINE INDEX T7on [id number]0-4.50The [facility] HospitalComment on above:Performed By: #### TSH, LIPID, T7, CMP #### [facility] [address] [address] [address] Rafael BarraganT3U35.0 %Pguwrj09.0-40.0The [facility] HospitalComment on above: Performed By: #### TSH, LIPID, T7, CMP #### [facility] [address] [address] [address] Rafael BarraganT4 [Mass/Vol]6.00 ug/dLNormal4.50-12.10ThBarnesville Hospital Comment on above:Performed By: #### TSH, LIPID, T7, CMP #### [facility] [address] [address] [address] Rafael BarraganGLYCOHEMOGLOBIN A1Con [id number] RECOMMENDATIONSEE BELOWLima City HospitalComascension genesys hospital on above:Result Comment: ADA RECOMMENDED LIMIT 4.0 - 6.0 ADA THERAPEUTIC TARGET < 7.0 ACTION SUGGESTED > 7.0Performed By: #### A1C #### [facility] [address] [place] [address] Dr. Rafael BarraganGlucose [Mass/Vol]114 mg/dLNoNationwide Children's HospitalComment on above:Performed By: #### A1C #### [facility] [address] [place] [address] Dr. Rafael BarraganHbA1c (Bld) [Mass fraction]5.6 %Normal4.5-6.2The [facility] HospitalComment on above:Performed By: #### A1C #### [facility] [address] [place] [address] Dr. Rafael BarraganLIPID PROFILEon [id number]-HDL RATIO NORMSEE [facility]Comasc[facility] hospital on above:Result Comment: 3.3 - 4.4 LOW RISK 4.4 - 7.1 AVERAGE RISK 7.1 - 11.0 MODERATE RISK >11.0 HIGH RISKPerformed By: #### TSH, LIPID, T7, CMP #### [facility] [address] [place] [address] Dr. Rafael BarraganCholesterol [Mass/Vol]152 mg/dLNoal<=200[facility] Comment on above:Performed By: #### TSH, LIPID, T7, CMP #### [facility] [address] [address] [address] Rafael Roldanesterol in HDL [Mass/Vol]65 mg/dLCritically pzav21-91BvcTrihealth Bethesda Butler HospitalComment on above:Performed By: #### TSH, LIPID, T7, CMP #### [facility] [address] [address] [address] Rafael Roldanesterol in LDL [Mass/Vol]75.8 mg/dLNoNationwide Children's HospitalComment on above:Performed By: #### TSH, LIPID, T7, CMP #### [facility] [address] [place] [address] Dr. Rafael Batista.total/Cholesterol in HDL [Mass ratio]2.3 {ratio} NormalThe [facility] HospitalComment on above:Performed By: #### TSH, LIPID, T7, CMP #### [facility] [address] [address] [address] Rafael Mckeon NORMAL> or = 60 mg/dl - LOW CARDIOVASCULAR RISK <40 mg/dl - HIGH CARDIOVASCULAR RISKNoNationwide Children's HospitalComment on above:Performed By: #### TSH, LIPID, T7, CMP #### [facility] [address] [address] [address] Rafael Mao CALC NORMALSEE BELOWNoNationwide Children's HospitalComment on above:Result Comment: <100 mg/dl OPTIMAL 100 - 129 mg/dl NEAR OR ABOVE OPTIMAL 130 - 159 mg/dl BORDERLINE HIGH 160 - 189 mg/dl HIGH >190 mg/dl VERY HIGH Performed By: #### TSH, LIPID, T7, CMP #### [facility] [address] [address] [address] Rafael BarraganTriglyceride [Mass/Vol]56 mg/dLNormal<=150[facility] Comment on above:Performed By: #### TSH, LIPID, T7, CMP #### [facility] [address] [place] [address] Dr. Yilan ChangVLDL CALC11.2 mg/dLNormalThe [facility] on above: Performed By: #### TSH, LIPID, T7, CMP #### [facility] [address] [place] [address] Dr. Rafael Sandoval BLD IMMUNO SCREENon [id number] BLOODNegativeNormal NEGATIVEThe [facility] on above:Performed By: #### OBSCRN #### [facility] [address] [address] [address] Rafael BarraganPROF 14(COMP METB)on [id number] [Mass/Vol]3.6 g/dLNormal 3.4-5.0The [facility] on above:Performed By: #### TSH, LIPID, T7, CMP #### [facility] [address] [place] [address] Dr. Rafael BarraganAlbumin/Globulin [Mass ratio]0.9 {ratio}NormalThe [facility] HospitalComment on above:Performed By: #### TSH, LIPID, T7, CMP #### [facility] [address] [place] [address] Dr. Rafael HernandezP [Catalytic activity/Vol]135 U/LCritically rbme33-198Mdb [facility] on above:Performed By: #### TSH, LIPID, T7, CMP #### [facility] [address] [place] [address] Dr. Rafael Dominguez [Catalytic activity/Vol]22 U/EMkzkps18-79Dmn [facility] HospitalComment on above:Performed By: #### TSH, LIPID, T7, CMP #### [facility] [address] [place] [address] Dr. Rafael Mcdaniel gap [Moles/Vol]11.4 mmol/LNormalThe [facility] on above:Performed By: #### TSH, LIPID, T7, CMP #### [facility] [address] [place] [address] Dr. Rafael Colón [Catalytic activity/Vol]13 U/LCritically uyq05-73Ccl [facility] HospitalComment on above:Performed By: #### TSH, LIPID, T7, CMP #### [facility] [address] [address] [address] Rafael BarraganBilirubin [Mass/Vol]0.4 mg/dLNormal0.2-1.0[facility] Comment on above:Performed By: #### TSH, LIPID, T7, CMP #### [facility] [address] [place] [address] Dr. Rafael BarraganCalcium [Mass/Vol]9.7 mg/dLNormal8.5-10.1The [facility] Comment on above:Performed By: #### TSH, LIPID, T7, CMP #### [facility] [address] [place] [address] Dr. Rafael BarraganChloride [Moles/Vol]101 mmol/ZKxfufc40-301VdyTrihealth [facility]hes[facility] Hospital Comment on above:Performed By: #### TSH, LIPID, T7, CMP #### [facility] [address] [place] [address] Dr. Rafael BarraganCO2 [Moles/Vol]30.9 mmol/NCxnohh61.0-32.0The [facility] Comment on above:Performed By: #### TSH, LIPID, T7, CMP #### [facility] [address] [place] [address] Dr. Rafael BarraganCreatinine [Mass/Vol]0.82 mg/dLNormal0.70-1.30The [facility] HospitalComment on above:Performed By: #### TSH, LIPID, T7, CMP #### [facility] [address] [place] [address] Dr. Rafael YatesGFR-AF MACANESE>60Normal>=60The [facility] [place] on above:Performed By: #### TSH, LIPID, T7, CMP #### [facility] [address] [place] [address] Dr. Rafael YatesGFR-NON AF MACANESE>60Normal>=60The [facility] [place] on above:Performed By: #### TSH, LIPID, T7, CMP #### [facility] [address] [address] [address] Rafael BarraganGlobulin (S) [Mass/Vol]4.1 g/dLNormChillicothe VA Medical CenterComment on above:Performed By: #### TSH, LIPID, T7, CMP #### [facility] [address] [address] [address] Rafael BarraganGlucose [Mass/Vol]96 mg/uZLxhbhq66-909Xca [facility] Comment on above:Performed By: #### TSH, LIPID, T7, CMP #### [facility] [address] [address] [address] Rafael BarraganPotassium [Moles/Vol]4.3 mmol/LNormal3.5-5.1The [facility] Comment on above:Performed By: #### TSH, LIPID, T7, CMP #### [facility] [address] [place] [address] Dr. Rafael BarraganProtein [Mass/Vol]7.7 g/dLNormal6.4-8.2The [facility] Comment on above:Performed By: #### TSH, LIPID, T7, CMP #### [facility] [address] [address] [address] Rafael BarraganSodium [Moles/Vol]139 mmol/DJqvmhj834-837Iwl [facility] Comment on above:Performed By: #### TSH, LIPID, T7, CMP #### [facility] [address] [address] [address] Rafael BarraganUrea nitrogen [Mass/Vol]17.0 mg/dLNormal7.0-18.0The [facility]Comment on above:Performed By: #### TSH, LIPID, T7, CMP #### [facility] [address] [place] [address] Dr. Rafael BarraganUrea nitrogen/Creatinine [Mass ratio]20.7 mg/mgNoNationwide Children's HospitalComment on above:Performed By: #### TSH, LIPID, T7, CMP #### [facility] [address] [address] [address] Rafael Hardy 66-61-6623PAO3.680 uIU/mLNormal0.358-3.740The [facility]Comment on above:Performed By: #### TSH, LIPID, T7, CMP #### [facility] [address] [place] [address] [address] [address] Rafael Barragan Vital Signs Date TimeVital SignValuePerforming FtccqhyqxEimsnrvt51-86-1829 08:50-3988EyJ7% (BldA) [Mass fraction]95 %Terry NILL [address] [place], [place] 4813804-04-2025 08:50-0400Heart rate73 /minMichael NILL [address] [place], [place] 4813804-04-2025 08:50-0400 Respiratory rate18 /minMichael NILL [address] [place], [place] 4813804-04-2025 08:50-0400 Diastolic blood ieqdavhp59 mm[Hg]Terry NILL [address] [place], [place] 4330204-04-2025 08:50-0400 Systolic blood rvakaleq156 mm[Hg]Terry NILL [facility]04-04-2025 08:35-0400Heart rate82 /minMichael NILL [facility]04-04-2025 08:35-0400 Respiratory rate15 /minMichael NILL [address] [place], [place] 4330204-04-2025 08:35-4393WpU2% (BldA) [Mass fraction]96 %Terry NILL [facility]04-04-2025 08:35-0400 Diastolic blood mm[Hg]Terry NILL [facility]04-04-2025 08:35-0400 Systolic blood xgufjpen110 mm[Hg]Terry NILL [address] [place], [place] 4330204-04-2025 08:25-0400 Respiratory rate10 /minMichael NILL [facility]04-04-2025 08:25-8571PnB8% (BldA) [Mass fraction]95 %Terry TURNER [facility]04-04-2025 08:25-0400 Diastolic blood fxwleskg91 mm[Hg]Terry TURNER [facility]04-04-2025 08:25-0400 Systolic blood zwtzkejw180 mm[Hg]Terry TURNER [facility]04-04-2025 08:25-0400Body xszyuwdxggd90.88 [degF]Terry TURNER [facility]04-04-2025 08:25-0400Heart rate68 /minMichael NILL [facility]04-04-2025 07:07-0400Blood Pressure LocationMichaebrian NILL [facility]04-04-2025 07:07-0400Body paycudgvnnr10.06 [degF]Terry TURNER [facility] Encounters Encounter DateEncounter TypeCare ProviderFacilityStart: 03-08-2025 End: 43-29-2502jfkhgdxfxuCnptxaa R NILLFacility:FTMCStart: 03-08-2025 End: 32-34-6634Wkngulu encounter procedureMichael R NILL [facility] Start: 03-02-2025 End: 68-24-5433relmgrffgqRmaxsgq R NILLFacility:FTMCStart: 03-02-2025 End: 07-19-2478Dnoabjh encounter procedureMichael R NILL [address] [place] [address] Start: 02-06-2025 End: 31-08-7486semijnopxePcilvgr HoyFacility:[facility] FargokStart: 01-30-2025 ambulatoryMichael NILLFacility:[facility] FargokStart: 20-75-6760uavfbhbijiBwyxohq NILL [facility]: 09-26-2024 End: 12-15-8562mtvzmbcbyhBahh T AMESFacility:[facility] Start: 81-86-1601Jlrxyeeld for general adult medical examination without abnormal findingsDR LIZ HOY .[facility]: 02-19-2023 End: 22-83-5255ygahapvwkcTP LIZ HOY .Facility:Z3Gumaw: 02-19-2023 End: 57-18-6042Wlweufhmd for general adult medical examination without abnormal findingsDR LIZ HOY .Facility:B6Drbkl: 02-17-2023 End: 49-18-4930umillrmetpTT LIZ HOY .Facility:T3Wmyzu: 77-68-5967jbebkiokkc DR LIZ WILEY .Facility: Procedures DateProcedureProcedure DetailPerforming ClinicianStart: 91-07-8265Verwivbmwqe Terry NILL Start: 45-08-8738ZqjytmnvnlprrnbuewvdlwxhbiMuotses NILL Start: 97-25-1704UAL screeningDR LIZ HOVadim .Comment on above:Performed By: #### PSASC #### [facility] [address] [place] [address] Dr. Hall ChangStart: 77-14-8464Kexufuvvuktw flexible diagnosticMichael NILL Start: 80-95-3020Qh with primary closure left uppwer lip mucosa.Terry NILL Nasal septoplastyMichael NILL Tonsillectomy and adenoidectomyMichael NILL Payers DatePayer CategoryPayerPolicy [id number] 2.16.840.1.675152.3.57[id number] 2.16.840.1.191277.3.57[id number] 2.16.840.1.775574.3.57[id number] 2.16.840.1.151923.3.57[id number] 2.16.840.1.896612.3.57[id number] 2.16.840.1.415490.3.57[id number] 2.16.840.1.677250.3.57[id number] 2.16.840.1.047247.3.579.2.44027-81-6829Gopn-[id number] [id number] Social History DateTypeDetailFacilityStart: 06-65-8125Dhsogtj smoking statusNever smoked tobacco (finding)[facility] [place]walkTobacco smoking statusNeverMercy Health St[facility] Surgery NorwalkSexual OrientationUniversity Hospitals [facility] Center Sex Assigned At BirthMalBrecks[facility] Start: 41-35-6264RrvMbco (finding)[facility] Functional Status JwiiQrdoqrcsvnXypbxxJpravzsa91-19-2089Nadcstrhsi StatusN/AFFulton [facility] Center Clinical Notes 03-02-2025 to 03-27-2025 Note Date & CgemVvjnHyywfgon25-95-7190 NoteGeneral Surgery Office/Clinic Note Chief Complaint consultation for anemia HPI Staff 64 year old male presents on consultation from Dr. Wiley for anemia. Labs completed 12/30 with H/H 11.6and 36.8. Denies dizziness, lightheadedness, fatigue or SOB. [...] swallowing difficulties, no hearing loss, no ear infection(s),no nose bleeds. Cardiovascular: normal blood pressure, no [...] prostate: Father. screening for malignant neoplasm of colon.[facility] HospitalComment on above:Result Comment: Electronically Signed By: Terry TURNER MD\.br\Date and Time Signed: 03/27/25 11:14 [id number] NoteProgress Note-Physician Patient: DONNY DIEGO Age: 64 years Sex: Male : 1960 Associated Diagnoses: None Author: Masood Arango MD Postoperative Information Postoperative disposition: Postoperative disposition: To PACU. Optimetrix number: Optimetrix number [id number]. Anesthetic utilized: General. Health Status Allergies: Allergic Reactions (Selected) Severity Not Documented Keflex- Rash. Physical Examination VS/Measurements Pain Assessment: Controlled. General: Awake, Appropriate. Respiratory: Adequate air exchange. Cardiovascular: Stable. Neurological Assessment Anesthetic outcome No anesthetic complications noted. Adequate pain relief. Review / Management Condition: Stable. Plan Transfer/Discharge: Transfer/Discharge Discharge when meets criteria ( To home ).[facility] HospitalComment on above:Result Comment: Electronically Signed By: Masood Arango MD\.br\Date and Time Signed: 03/04/25 12:14 EDT 03-02-2025 Evaluation + Plan noteExtracted from:Title:ANES Pre-operative Note uthor:Masood Arango MDDate:03/02/25 Plan [place] [employer] (ASA) physical status classification: Class II. Anesthetic Preoperative Plan: Anesthesia General. Future Appointments Appointment Date:03/08/2025 10:00:00 AM Scheduled Provider: Location:[facility].XRAY Appointment Type:XR Esophagus/Upper GI/Small Bowel ([facility]) Future Scheduled Tests Radiology* XR Upper GI Double Contrast 03/08/25 [facility] 04-04-2025 NoteColonoscopy Procedure Report Patient: DONNY DIEGO Age: 64 years Sex: Male : 1960 Associated Diagnoses: None Author: Terry TURNER MD Pre-Procedure Procedure Date 03/02/2025 08:20:00 . Procedure Type: Colonoscopy. Procedure provider Terry Turner MD. Referred by Liz Wiley MD. [...] in place. Impression and Plan Diagnosis: Anemia (GJF25-UK D64.9, Discharge, Medical). Course: Progressing as expected. Recommendations: Repeat colonoscopy:: In 10 years. Follow-up:: if problems/questions. Diet:: Regular diet. Medication resumption:: Continue current medications. Return to activities:: After 24 hours. Education and Follow-up: Counseled: Family.[facility] HospitalComment on above:Other Comment: Missing Attachment - attachment storage system not supported [id number] Can be viewed in source systemMissing Attachment - attachment storage system not supported [id number] Can be viewed insource systemMissing Attachment - attachment storage system not supported [id number] Can be viewed in s [facility] systemMissing Attachment - attachment storage system not supported [id number] Can be viewed in source -[id number] Hospital Discharge instructions Patient Education 03/02/2025 08:31:13 Endoscopy, Care After Procedure [facility] [place]oscopy Care After Procedure Please read the [...] 06/29/2005 Document Re-Released: 05/09/2007 ExitCare Patient Information miCab. 03/02/2025 08:31:09 Colonoscopy, Care After Surgery Salam [...] the day. Follow Up Care 02/06/2025 08:52:59 With:Terry TURNER Address: [address] [place] [address], [facility] [address] Business (1) When: only if needed [facility] 04-04-2025 NotePatient Education - Text Endoscopy Care After Procedure Please read the instructions outlined below and refer to this sheet in the next few weeks. These discharge instructions provide you with general information on caring for yourself [facility] Your doctor may also give you specific [...] Document Re-Released: 05/09/2007 ExitCare??? Patient Information ???2009 [employer]. Colonoscopy Care After Surgery Please read the instructions outlined below and refer to this sheet in the next few weeks. These discharge instructions provide you with general information on caring for yourself [facility] Your doctor may also give you specific [...] is severe or gets worse throughout the day.[facility]04-04-2025 NoteProgress Note-Physician Patient: DONNY DIEGO Age: 64 [...] list: All Problems Anemia / SNOMED CT 269058000 / Confirmed Anxiety / SNOMED CT 60201904 / Confirmed BMI 26.0-26.9,adult / SNOMED CT 9085622206 / Confirmed Chronic rhinitis / SNOMED CT 747905169 / Confirmed History of varicocele / SNOMED CT 163663963 / Confirmed Hypothyroidism / SNOMED CT 85006390 / Confirmed Overweight / SNOMED CT 121356942 / Confirmed, Active Problems (7) Anemia Anxiety BMI 26.0-26.9,adult Chronic rhinitis History of varicocele Hypothyroidism Overweight Histories Past Medical History: No active or resolved past medical history items have been selected or recorded. Family History: Heart disease Father Brain tumor Brother Primary malignant neoplasm of prostate Father Procedure history: Laryngoscopy, flexible fiberoptic; diagnostic (95961) on 08/01/2021 at 60 Years. Bx with primary closure left uppwer lip mucosa. on 09/24/2016 at 56 Years. Nasal septoplasty ([id number]). Tonsillectomy and adenoidectomy ([id number]). Social History Social & Psychosocial Habits Tobacco [...] review: No qualifying data available . Plan [place] [employer] (ASA) physical status classification: Class II. Anesthetic Preoperative Plan: Anesthesia General.[facility] Comment on above:Result Comment: Electronically Signed By: Masood Arango MD\.br\Date and Time Signed: 03/02/25 08:12 [id number] NoteHistory and Physical Patient: DONNY DIEGO Age: 64 years Sex: Male : 1960 Associated Diagnoses: None Author: Terry TURNER MD Subjective no changes to H [facility] PFCity HospitalComment on above:Result Comment: Electronically Signed By: Terry TURNER MD\.br\Date and Time Signed: 03/02/25 07:34 EDTHospital course Narrative No data available for this section [facility] Hospital Discharge instructions No data available for this section [facility] Progress note No data available for this section [facility] Summary Purpose Family History No [...] and content) DATE CREATED AUTHOR 02/22/2023 [facility] DATE CREATED AUTHOR AUTHOR'S ORGANIZ ATION 03/28/2025 [facility] Patient Care team informatio n (unrecognized section and content) Personnel Name: Liz Wiley MD Address: [address] [place] [address] Telecom: Personnel Name: Liz Wiley MD Address: [address] [place] [address] Telecom: FOR RECORDS PERTAINING TO PATIENTS WHO [...] BE BASED ON THE PRIMARY CLINICAL RECORDS. [facility] fav[employer]it [facility]. provides no warranty or guarantee of the accuracy or completeness of information in this document.
[2025-11-09 17:17] LABS: C. Difficile PCR NEGATIVE
== END 2025-11-09 14:23 | disposition home or self-care (01) ==
LOC: LAB 14:22
PROVIDERS: PCP Family Medicine; Visit Provider Family Medicine
DX: K52.9 Noninfective gastroenteritis and colitis, unspecified (principal); G43.909 Migraine, unspecified, not intractable, without status migrainosus; I11.0 Hypertensive heart disease with heart failure; I50.30 Unspecified diastolic (congestive) heart failure; R06.00 Dyspnea, unspecified
CPT/HCPCS: 83631; 87045; 87046; 87177; 87209; 87427; 87493; G0328